=== PATIENT | female | born 1940 | race Caucasian/White ===

== ENCOUNTER 2016-09-12 23:17 | Inpatient (IN) | payer MEDICARE, BC ==
[~2016-09-12] VITALS: Ht 168.9 cm; Wt 129.7 kg
[2016-09-13 00:34] LABS: HEMATOCRIT 41.7 % (36.0-48.0); HEMOGLOBIN 13.6 g/dL (12-16); LYMPHOCYTES 18.2 % (15-50); MCH 27.4 pg (26.0-34.0); MCHC 32.6 g/dL (31.0-37.0); MCV 83.9 fL (80.0-100.0); MEAN PLATELET VOLUME 9.6 fL (7.4-10.4); NEUTROPHILS 74.9 % (40-80); PLATELET COUNT 215 10x3/uL (130-400); RBC 4.97 10x6/uL (4.00-5.40); RDW 14.1 % (11.5-14.5); WBC 7.2 10x3/uL (4.8-10.8)
[2016-09-13 00:45] LABS: ALBUMIN 3.4 g/dL (3.4-5.0); ANION GAP 15.5 mmol/L (8-16); BILIRUBIN - TOTAL 1.23 mg/dL (0.2-1.3); CALCIUM 9.2 mg/dL (8.5-10.1); CARBON DIOXIDE 26.5 mmol/L (21.0-32.0); PROTEIN - SERUM 7.3 g/dL (6.4-8.2)
[2016-09-13 01:16] LABS: APPEARANCE HAZY (CLEAR); COLOR YELLOW (YELLOW); SPECIFIC GRAVITY 1.025 (1.005-1.020)
[2016-09-13 01:17] LABS: BACTERIA MODERATE /hpf (NONE SEEN); BILIRUBIN 3+ (NEGATIVE); EPITHELIAL CELLS 0-5 /hpf (0-5); GLUCOSE 250 mg/dL (NEGATIVE); GRANULAR CAST OCC /lpf (NONE SEEN); KETONE SMALL mg/dL (NEGATIVE); LEUKOCYTE ESTERASE TRACE (NEGATIVE); MUCUS >1+ /lpf (NONE SEEN); NITRITE NEGATIVE (NEGATIVE); PROTEIN 2+ mg/dL (NEGATIVE); RED CELLS - URINE OCC /hpf (0-5); UROBILINOGEN NORMAL (NORMAL)
--- NOTE | 2016-09-13 03:12 | NUR ---
RECIEVED PT TO FLOOR VIA WHEELCHAIR. ALERT AND ORIENTED AND ABLE TO VERBALIZE NEEDS. PT WITH SLIGHT EXPRESSIVE DYSPHAGIA. IV IS PATENT AND SALINE LOC AT THIS TIME. PT IS AMBULATORY WITH ASSISTANCE BUT BED ALARM IS PUT IN PLACE FOR PT SAFETY. PT DENIES ANY PAIN AT THIS TIME. NO NEEDS ARE VERBALIZED AT THIS TIME. PT IS ORIENTED TO ROOM AND USE OF CALL LIGHT. WILL CONTINUE TO MONITOR. SIDE RAILS ARE UP X 2. BED IS IN LOWEST POSITION. BED ALARM IS ON FOR SAFETY. CALL LIGHT IS PLACED IN REACH.
[2016-09-13] MEDS ORDERED: PRINIVIL20 MG PO (03:13)
[2016-09-13] MEDS ORDERED: LANTUS INSULIN10 ML SC (03:14)
[2016-09-13] MEDS ORDERED: TOPROL XL100 MG PO (03:14)
[2016-09-13] MEDS ORDERED: NORVASC10 MG PO (03:14)
[2016-09-13] MEDS ORDERED: OMEPRAZOLE CAP 20M PO (03:16)
[2016-09-13] MEDS ORDERED: ALENDRONATE SOD70 MG PO (03:17)
[2016-09-13] MEDS ORDERED: JANUVIA100 MG PO (03:17)
[2016-09-13] MEDS ORDERED: LODINE400 MG PO (03:18)
[2016-09-13] MEDS ORDERED: GLUCOPHAGE1000 MG PO (03:18)
[2016-09-13] MEDS ORDERED: CALCIUM 600+D T1 TA1 (03:20)
[2016-09-13] MEDS ORDERED: ASPIRIN EC325 M1 PO (03:22)
[2016-09-13] MEDS ORDERED: HYDROCHLOROTH12.5 M1 PO (03:23)
[2016-09-13] MEDS ORDERED: MULTIPLE VITAMI1 TA1 PO (03:23)
[2016-09-13 05:00] VITALS: BP 150/78
[2016-09-13 06:46] VITALS: BP 150/78; BMI 45.4
--- NOTE | 2016-09-13 08:10 | NUR ---
SPOKE WITH DR SAMANO AT THIS TIME AND NEW ORDER FOR ZOFRAN GIVEN FOR PT'S COMPLAINT OF NAUSEA WITHOUT VOMITING. REMAINS NPO.
[2016-09-13 08:11] VITALS: BP 153/99
--- NOTE | 2016-09-13 09:16 | NUR ---
PRN ZOFRAN ADMINSTERED PER ORDER AT THIS TIME FOR PT'S C/O NAUSEA WITHOUT EMESIS. IV TO LEFT CHEST PATENT. ASSESSMENT PERFORMED PER FLOWSHEET. CALL LIGHT IN REACH, WILL CONTINUE WITH PLAN OF CARE.
[2016-09-13 10:52] VITALS: Ht 168.9 cm; Wt 129.7 kg
--- NOTE | 2016-09-13 12:05 | NUR ---
FSBS 168 AT THIS TIME. PT IS NPO, SO INSULIN HELD AT THIS TIME. DENIES PAIN OR NAUSEA. IV TO LEFT BREAST PATENT WITH BRISK BLOOD RETURN PRESENT. PT ABLE TO MAKE NEEDS KNOWN. CALL LIGHT IN REACH, BED ALARM ON AND FAMILY AT BEDSIDE.
--- NOTE | 2016-09-13 12:11 | NUR ---
Patient Name: SUNDAR MCDONALD Admission Status: ER Accout number: [id number] Admission Date: 09-13-2016 : 1940 Admission Diagnosis: Attending: DEEPTHI Current LOS: 1 Anticipated DC Date: 09-18-2016 Planned Disposition: Home Primary Insurance: MEDICARE A & B Discharge Planning Comments: CM MET WITH PATIENT REGARDING D/C NEEDS AND PLANS. PATIENT STATED SHE LIVES ALONE AND HAS NO STEPS OR STAIRS AT HER HOME. PATIENT STATED SHE IS INDEPENDENT AND HAS A WALKER, SHOWER CHAIR, GLUCOMETER AND CPAP AT HOME. PATIENT DOES CHECK HER BLOOD SUGAR REGULARLY. PATIENTS PCP IS DR. GANDARA AND PHARMACY IS [facility] IN [place]. PATIENTS SON WILL BE PICKING HER UP AT DISCHARGE. PATIENT WANTS REHAB OR HH AT DISCHARGE. CM WILL CONTINUE TO FOLLOW PATIENT WITH D/C NEEDS AND PLANS. PCP DR. GANDARA [facility] IN [place]- [phone] DEMETRIA (SON) [phone] ESTRELLITA (STEP MOM) [phone] Cancer Genetics Assistant: Lacey Hutchins Is the patient Alert and Oriented? Yes 0 * How many steps to enter\exit or inside your home? 0 0 * PCP DR. GANDARA 0 * Pharmacy [facility] AT [place] 0 * Preadmission Environment Home Alone 0 * ADLs Independent 0 * Equipment CPAP Glucometer Shower Chair Walker 0 * List name and contact numbers for known caregivers / representatives who currently or will assist patient after discharge: DEMETRIA (SON) [phone] ESTRELLITA (STEP MOM) [phone] 0 * Community resources currently utilized None 0 * Additional services required to return to the preadmission environment? Yes 0 * Can the patient safely return to the preadmission environment? No 0 * Has this patient been hospitalized within the prior 30 days at any hospital? No
[2016-09-13 12:13] VITALS: BP 154/94
--- NOTE | 2016-09-13 12:55 | NUR ---
AMBULATING IN HALLWAY WITH PHYSCAL AND OCCUPATIONAL THERAPY AT THIS TIME.
[2016-09-13 15:59] VITALS: BP 155/86
[2016-09-13 16:45] LABS: CHOL - HDL RATIO 2.9 ratio (2.3-4.1); LDL-HDL RATIO 1.4 ratio (1.5-3.5)
--- NOTE | 2016-09-13 16:45 | NUR ---
TAKEN TO MRI AT THIS TIME. WILL MONITOR PT WHEN SHE RETURNS TO THE FLOOR.
--- NOTE | 2016-09-13 17:35 | NUR ---
SPEECH THERAPY AT BEDSIDE PERFORMING SWALLOW EVALUATION.
[2016-09-13 19:29] VITALS: BP 136/77
--- NOTE | 2016-09-13 19:34 | NUR ---
REPORT CALLED TO OMAR AT THIS TIME. WILL TRANSFER PT TO ROOM 2121 VIA BED.
[2016-09-14] VITALS: BP 130/85
[2016-09-14 04:00] VITALS: BP 141/102
--- NOTE | 2016-09-14 07:45 | NUR ---
INTRODUCED MYSELF TO PT PRIMARY RN FOR TODAYS SHIFT. PT IS ALERT AND ORIENTED SITTING UP IN BED RESTING QUIETLY. RR NONLABORED ON RA. TELEMETRY RUNNING UNCONTROLLED A.FIB. PT HAS A L.BREAST PIV WITH DRSG CDI AND SWAB CAPS IN USE. CURRENTLY INFUSING CARDIZEM AT 10ML/HR. SHIFT ASSESSMENT COMPLETED AND PT DENIES ANY CURRENT PAIN OR NEEDS AT THIS TIME. CL IN REACH. WILL CPOC.
[2016-09-14 08:00] VITALS: BP 148/76
--- NOTE | 2016-09-14 09:00 | NUR ---
PT REC'D MORNING MEDICATIONS AND SWALLOWED WITHOUT ANY DIFFICULTIES. PT STATES SHE TAKES HER HCTZ 25MG ONCE A DAY WHEN ITS CURRENTLY ORDERED 12.5MG BID. WILL ASK ABOUT HAVING IT CHANGED. PT RESTING QUIETLY AND DENIES ANY CURRENT PAIN OR NEEDS AT THIS TIME. CL IN REACH. WILL CPOC.
[2016-09-14] MEDS ORDERED: CALCIUM 600+D T1 TA1 PO (10:36)
--- NOTE | 2016-09-14 11:07 | NUR ---
FSBS 213. PT REC'D 4 UNITS OF SS INSULIN. PT RESTING QUIETLY IN BED AND DENIES ANY CURRENT PAIN OR NEEDS. CL IN REACH. WILL CPOC.
[2016-09-14 12:00] VITALS: BP 132/64
--- NOTE | 2016-09-14 14:07 | NUR ---
REPLACED OLD CARDIZEM DRIP WITH NEW BAG. INFUSING VIA L.BREAST PIV WITH DRSG CDI AND SWAB CAPS IN USE. INFUSING @10ML/HR. PT RESTING QUIETLY AND STATES SHE IS COMFORTABLE IN BED. NO FURTHER NEEDS NOTED AT THIS TIME. CL IN REACH. WILL CPOC.
[2016-09-14 16:00] VITALS: BP 154/87
--- NOTE | 2016-09-14 16:23 | NUR ---
FSBS 204. PT REC'D 4 UNITS PER SS INSULIN. PT IS RESTING QUIETLY WITH FAMILY AT BEDSIDE. REQUESTED AND PROVIDED WITH ICE WATER. NO FURTHER NEEDS AT THIS TIME. CL IN REACH. WILL CPOC.
--- NOTE | 2016-09-14 20:00 | NUR ---
RESTING IN BED. FAMILY X 2 AT BEDSIDE. REVIEWED PLAN OF CARE. ASSESSMENT COMPLETED. IV CARDIZEM INFUSING TO LEFT BREAST AT 10ML/HR. CAF PER TELEMETRY. NONLABORED RESPIRATIONS ON ROOM AIR. CALL LIGHT IN REACH. CPOC.
[2016-09-14 21:18] VITALS: BP 110/64
--- NOTE | 2016-09-14 23:00 | NUR ---
HS MEDS GIVEN. FSBS 224. SLIDING SCALE INSULIN GIVEN. PT WANTING HER ARTHRITIS MEDICATION, BUT IT IS ON ON HOLD PER MD ORDER. PT PLANS TO TALK TO MD ABOUT IT TOMORROW. PT NOW WITH HOME CPAP IN PLACE AND IS RESTING.
[2016-09-15 01:12] VITALS: BP 127/72
[2016-09-15 05:01] VITALS: BP 123/58
[2016-09-15 07:26] VITALS: BP 112/54
--- NOTE | 2016-09-15 11:30 | NUR ---
FSBS 269. PT REC'D 6 UNITS OF SS INSULIN. PT SITTING UP IN BED WAITING ON HER LUNCH TRAY WITH VISITOR AT BEDSIDE. PT DENIES ANY CURRENT PAIN OR NEEDS AT THIS TIME. CL IN REACH. WILL CPOC.
[2016-09-15 12:04] VITALS: BP 128/71
--- NOTE | 2016-09-15 13:12 | NUR ---
Nutritition follow-up: Diet: ADA consistent CHO PO intake ~60% of meals Pt working with speech to improve swallow function labs reviewed Wt: 285# RDN following.
--- NOTE | 2016-09-15 13:20 | NUR ---
STOPPED CARDIZEM DRIP ORDERED. FLUSHED AND SL PTS L.BREAST PIV. DRSG CDI AND SWAB CAPS IN USE. TEACHING DONE ON WHY DRIP WAS STOPPED AND NEW MED ORDERED XARELTO. PT VERBALIZED UNDERSTANDING AND DENIES ANY CURRENT NEEDS OR QUESTIONS. CL IN REACH. WILL CPOC.
[2016-09-15 16:00] VITALS: BP 141/76
--- NOTE | 2016-09-15 16:15 | NUR ---
FSBS 219. PT REC'D 4 UNITS PER SS INSULIN. PT SITTING UP IN BED RESTING QUIETLY AND STATES SHE IS COMFORTABLE. CL IN REACH. WILL CTM.
[2016-09-15 20:25] VITALS: BP 145/74
[2016-09-16 00:41] VITALS: BP 138/70
[2016-09-16 05:48] VITALS: BP 128/77
--- NOTE | 2016-09-16 07:22 | NUR ---
PT SITTING UP IN BED DENIES NEEDS WILL CONT TO MONITOR
[2016-09-16 08:00] VITALS: BP 131/76
[2016-09-16 12:00] VITALS: BP 135/83
[2016-09-16 13:11] LABS: BASOPHILS 0.1 % (0.0-2.0); EOSINOPHILS 0.8 % (0-7); HEMATOCRIT 42.7 % (36.0-48.0); IMMATURE GRANULOCYTES 0.7 % (0-5); LYMPHOCYTES 21.3 % (15-50); MCH 27.5 pg (26.0-34.0); MCHC 32.8 g/dL (31.0-37.0); MCV 83.9 fL (80.0-100.0); MEAN PLATELET VOLUME 10.8 fL (7.4-10.4); MONOCYTES 9.1 % (2-11); PLATELET COUNT 241 10x3/uL (130-400); RBC 5.09 10x6/uL (4.00-5.40); RDW 13.9 % (11.5-14.5); WBC 8.9 10x3/uL (4.8-10.8)
[2016-09-16 14:38] LABS: CALCIUM 8.7 mg/dL (8.5-10.1); CARBON DIOXIDE 32.9 mmol/L (21.0-32.0); CREATININE - SERUM 1.2 mg/dL (0.6-1.3)
[2016-09-16 14:45] LABS: ANION GAP 10.8 mmol/L (8-16)
[2016-09-16 14:47] LABS: POTASSIUM - SERUM 2.7 mmol/L (3.5-5.1)
[2016-09-16 16:27] VITALS: BP 125/52
--- NOTE | 2016-09-16 18:13 | NUR ---
PT SITTING UP IN BED WITH FAMILY AT BEDSIDE. DENIES NEEDS WILL CONT TO MONITOR.
[2016-09-16 20:15] VITALS: BP 149/47
--- NOTE | 2016-09-16 22:17 | NUR ---
PT RESTING IN BED. HOME CPAP IN PLACE. ROUSES EASILY. HS MED GIVEN. FSBS 289, 6 UNITS HUMALOG GIVEN. REVIEWED PLAN OF CARE. PT DENIES PAIN OR DISCOMFORT. SEE ASSESSMENT. CPOC.
[2016-09-17 00:23] VITALS: BP 144/75
[2016-09-17 04:20] VITALS: BP 120/68
[2016-09-17 05:11] LABS: BASOPHILS 0.2 % (0.0-2.0); EOSINOPHILS 1.6 % (0-7); HEMATOCRIT 41.5 % (36.0-48.0); HEMOGLOBIN 13.1 g/dL (12-16); IMMATURE GRANULOCYTES 0.3 % (0-5); LYMPHOCYTES 23.4 % (15-50); MCH 26.8 pg (26.0-34.0); MCHC 31.6 g/dL (31.0-37.0); MEAN PLATELET VOLUME 10.5 fL (7.4-10.4); MONOCYTES 12.9 % (2-11); NEUTROPHILS 61.6 % (40-80); PLATELET COUNT 238 10x3/uL (130-400); RBC 4.88 10x6/uL (4.00-5.40)
[2016-09-17 05:18] LABS: WBC 6.4 10x3/uL (4.8-10.8)
[2016-09-17 06:06] LABS: ANION GAP 13.2 mmol/L (8-16); CALCIUM 8.3 mg/dL (8.5-10.1); MAGNESIUM - SERUM 1.4 mg/dL (1.8-2.4); PHOSPHOROUS 4.5 mg/dL (2.5-4.9)
[2016-09-17 06:08] LABS: CREATININE - SERUM 0.8 mg/dL (0.6-1.3); POTASSIUM - SERUM 3.2 mmol/L (3.5-5.1)
--- NOTE | 2016-09-17 07:30 | NUR ---
RESTING QUIETLY RESP UNLABORED DENIES ANY NEEDS OR DISCOMFORT NAD NOTED
[2016-09-17 08:00] VITALS: BP 148/94
[2016-09-17 12:00] VITALS: BP 109/82
--- NOTE | 2016-09-17 12:09 | NUR ---
FSBS 314 HUMALOG 8 UNITS GIVEN SQ LT ARM
[2016-09-17 16:00] VITALS: BP 122/74
--- NOTE | 2016-09-17 19:44 | NUR ---
RESUMED CARE OF PT, LYING IN BED RESPIRATIONS EVEN AND UNLABORED ON ROOM AIR. 108 UCAF ON TELEMETRY. NO NEEDS VOICED AT THIS TIME. CALL LIGHT IN REACH. WILL CONTINUE TO MONITOR. SEE NURSE ASSESSMENT.
[2016-09-17 20:00] VITALS: BP 138/67
[2016-09-18] VITALS: BP 141/88
[2016-09-18 04:00] VITALS: BP 142/80
[2016-09-18 06:02] LABS: BASOPHILS 0.6 % (0.0-2.0); EOSINOPHILS 2.4 % (0-7); HEMATOCRIT 41.4 % (36.0-48.0); HEMOGLOBIN 13.1 g/dL (12-16); IMMATURE GRANULOCYTES 0.4 % (0-5); LYMPHOCYTES 25.4 % (15-50); MCH 26.8 pg (26.0-34.0); MCHC 31.6 g/dL (31.0-37.0); MCV 84.8 fL (80.0-100.0); MEAN PLATELET VOLUME 9.9 fL (7.4-10.4); MONOCYTES 13.3 % (2-11); NEUTROPHILS 57.9 % (40-80); PLATELET COUNT 239 10x3/uL (130-400); RBC 4.88 10x6/uL (4.00-5.40); RDW 13.9 % (11.5-14.5); WBC 5.4 10x3/uL (4.8-10.8)
[2016-09-18 06:22] LABS: ANION GAP 11.3 mmol/L (8-16); CALCIUM 8.4 mg/dL (8.5-10.1); CARBON DIOXIDE 30.1 mmol/L (21.0-32.0); CREATININE - SERUM 0.8 mg/dL (0.6-1.3); MAGNESIUM - SERUM 1.5 mg/dL (1.8-2.4); POTASSIUM - SERUM 3.4 mmol/L (3.5-5.1)
[2016-09-18 08:25] VITALS: BP 148/81
--- NOTE | 2016-09-18 09:37 | NUR ---
TELEMETRY UCAF HR 111. SITTING UP IN CHAIR WITH CALL LIGHT IN REACH. WILL CONT. PLAN OF CARE.
[2016-09-18 12:53] VITALS: BP 130/68
--- NOTE | 2016-09-18 14:16 | EC ---
PATIENT:SUNDAR MCDONALD DATE OF SERVICE: 09/13/16 SEX: F MEDICAL RECORD: [id number] DATE OF : [birth year] LOCATION:D.M2 D.212 AGE OF PATIENT: 76 ADMISSION DATE: 09/13/16 REFERRING PHYSICIAN: INTERPRETING PHYSICIAN: SAY RASCON MD ECHOCARDIOGRAM REPORT ECHO CHARGES 4 ECHO COMPLETE CLINICAL DIAGNOSIS: LEFT MCA ECHOCARDIOGRAPHIC MEASUREMENTS (adult normal given) AC root (d.<3.7cm) 3.4 LV Septum d (<1.2 cm> 1.3 Valve Excursion 2.0 LV Septum (systole) 1.8 Left Atria (s.<4.0cm> 3.4 LVPW d(<1.2cm) 1.3 RV (d.<2.3cm) 3.3 LVPW (sytole) 1.9 LV diastole(<5.6CM) 3.3 MV E-F(>70mm/sec) LV systole 1.9 LVOT Diameter 1.8 MV exc.(>10mm) Est.ejection fraction (50-75%) Pericardial Effusion N DOPPLER: LVIT A E 106.0 LA RVSP 38.0 LVOT 103 AOP1/2T Asc. Ao 145 RVOT 72.0 RA PA 115 AV Gradient Peak 8.4 AV Mean 4.6 AV Area 1.7 MV Gradient Peak 5.6 MV Mean 2.0 MV Area COMMENTS: Cargo Bracer: Milagros GUARDADOOE Rv Technician:Melania Murillo TAPE# PACS DATE OF SERVICE: 09/13/2016 Echocardiogram FINDINGS: 1. Left ventricular chamber size is within normal limits. Left ventricular systolic function is normal. Overall ejection fraction estimated at 55%. 2. Left atrium, right atrium, and right ventricle chamber sizes are within normal limits. 3. Valvular structures have normal structure and motion. ECHOCARDIOGRAM REPORT [id number] SUNDAR CMDONALD 4. Doppler interrogation only reveals mild tricuspid regurgitation. No other valvular insufficiency or stenosis and pulmonary systolic pressure is normal estimated at 38 mmHg. 5. No evidence of pericardial effusion or left ventricular thrombus. TRANSINT:[id number] Voice Confirmation ID: [id number] DOCUMENT ID: [id number] SAY RASCON MD at 8326 CC: VANE SAMANO MD [id number] DICTATION DATE: 09/13/16 1302 CREDIT REPORTER: 09/13/16 1344 ADM IN [place] [id number] [place] [id number]
--- NOTE | 2016-09-18 16:41 | NUR ---
Patient Name: SUNDAR MCDONALD Encounter No: [id number] : 1940 Primary Insurance: MEDICARE A & B Anticipated DC Date: Planned Disposition: Inpatient Rehab External Planned Provider: [facility] INPATIENT REHAB DCP follow-up note: CM MET WITH PT IN ROOM TO DISCUSS DISCHARGE NEEDS AND PLANNING. CM DISCUSSED AVAILABILITY OF HOME HEALTH, REHAB SERVICES AND MEDICAL EQUIPMENT. PT WOULD LIKE TO BE CONSIDERED FOR INPATIENT REHAB AT [facility]. IMPORTANT MESSAGE FROM MEDICARE PROVIDED AND EXPLAINED. Martin Haney, CASE MANAGMENT
[2016-09-18 16:49] VITALS: BP 131/71
[2016-09-19] VITALS: BP 131/74
--- NOTE | 2016-09-19 00:06 | NUR ---
PT LAYING IN BED PT ASSESSMENT COMPLETED NO DISTRESS OBSERVED RESPEARATIONS EVEN AND UNLABORED NO DISTRESS OBSERVED CALL LIGHT IN REACH SRX2 BED LOW AND LOCKED WILL MONITOR
[2016-09-19 04:00] VITALS: BP 143/82
[2016-09-19 06:20] LABS: BASOPHILS 0.4 % (0.0-2.0); HEMATOCRIT 42.1 % (36.0-48.0); HEMOGLOBIN 11.6 g/dL (12-16); IMMATURE GRANULOCYTES 0.8 % (0-5); LYMPHOCYTES 21.5 % (15-50); MCH 23.6 pg (26.0-34.0); MCHC 27.6 g/dL (31.0-37.0); MCV 85.6 fL (80.0-100.0); MEAN PLATELET VOLUME 11.1 fL (7.4-10.4); MONOCYTES 11.3 % (2-11); RBC 4.92 10x6/uL (4.00-5.40); RDW 13.9 % (11.5-14.5); WBC 5.1 10x3/uL (4.8-10.8)
[2016-09-19 06:24] LABS: ANION GAP 14.3 mmol/L (8-16); CALCIUM 8.4 mg/dL (8.5-10.1); CARBON DIOXIDE 27.4 mmol/L (21.0-32.0); CREATININE - SERUM 0.9 mg/dL (0.6-1.3); PLATELET COUNT 179 10x3/uL (130-400); POTASSIUM - SERUM 3.7 mmol/L (3.5-5.1)
[2016-09-19 08:00] VITALS: BP 137/56
--- NOTE | 2016-09-19 09:23 | NUR ---
TELEMETRY CAF. UP IN CHAIR WITH CALL LIGHT IN REACH. WILL MONITOR NEEDS.
[2016-09-19 12:00] VITALS: BP 129/60
[2016-09-19] MEDS ORDERED: XARELTO20 MG PO (12:02)
[2016-09-19] MEDS ORDERED: TOPROL XL50 MG PO (12:03)
[2016-09-19] MEDS ORDERED: BETAPACE 120 M120 MG PO (12:03)
--- NOTE | 2016-09-19 14:38 | NUR ---
Patient Name: SUNDAR MCDONALD Encounter No: [id number] : 1940 Primary Insurance: MEDICARE A & B Anticipated DC Date: 09-19-2016 Planned Disposition: Home DCP follow-up note: CM RECEIVED DISCHARGE ORDERS, MET WITH PT IN ROOM TO DISCUSS DISCHARGE PLANNING AND NEEDS. PHYSICAL AND SPEECH THERAPY HAVE SIGNED OFF ON PATIENT, PT HAS NO WOUND CARE NEEDS. PT DOES NOT QUALIFY FOR INPATIENT OR JAIL REHAB NOR HAVE A HOME HEALTH SKILLED NEED. PT DENIES NEED OF ANY MEDICL EQUIPMENT AND DISCHARGE NEEDS AT THIS TIME, REPORTS HER FAMILY WILL PICK HER UP AND WILL BE ASSISTING HER IF NEEDED. PT HAS IMPORTANT MESSAGE FROM MEDICARE FROM YESTERDAY. PT DENIES DISCHARGE NEEDS, FAMILY TO [employer] FOR TRANSPORT HOME. Martin Haney, CASE MANAGEMENT
--- NOTE | 2016-09-19 15:54 | NUR ---
IV AND TELEMETRY DCD. DC PLANS GIVEN. UNDERSTANDING VOICED. ESCORTED TO CAR BY W/C.
[2016-10-19] MEDS ORDERED: ACETAMINOPHEN500 M1 (09:09)
[2016-10-19] MEDS ORDERED: XARELTO20 MG PO (09:11)
== END 2016-09-19 15:55 | disposition home or self-care (01) | DRG 65 ==
LOC: D.ER 23:17 → D.M2 09-13 01:32 → D.MS 09-13 01:32 → D.M2 09-13 19:35
PROVIDERS: Emergency Medicine; Nurse Practitioner Family; ADMIT Family Medicine
DX: I63.512 Cerebral infarction due to unspecified occlusion or stenosis of left middle cerebral artery (principal); G81.91 Hemiplegia, unspecified affecting right dominant side; I10 Essential (primary) hypertension; E11.9 Type 2 diabetes mellitus without complications; I48.91 Unspecified atrial fibrillation; R40.2143 Coma scale, eyes open, spontaneous, at hospital admission; R40.2363 Coma scale, best motor response, obeys commands, at hospital admission; R40.2253 Coma scale, best verbal response, oriented, at hospital admission

== ENCOUNTER → 2016-10-19 08:14 | Outpatient (CLI) | payer MEDICARE, BC ==
[~2016-10-19] VITALS: Ht 168.9 cm; Wt 129.5 kg
--- NOTE | ~2016-10-19 | HEMODYNAMI ---
PATIENT:SUNDAR MCDONALD MEDICAL RECORD: [id number] : [birth year] LOCATION:[facility] ADMISSION DATE: 10/19/16 Generatedon:10/19/201610:20 Patient name: SUNDAR MCDONALD Patient #: [id number] SSN: DO B: 1940 Date of study: 10/19/2016 Page: Of Hemodynamic Procedure Report Patient Data Patient Demographics Procedure consent was obtained First Name: SUNDAR Gender: Female Last Name: TAMARA : 1940 Middle Initial: L Age: 76 year(s) Patient #: [id number] Race: Additional ID: [id number] Contact details [address]: [address] [place] [address] State: [place] City: [place] Zip code: [address] Past Medical History Allergies Allergen Reaction Date Comments Reported Augmentin 10/19/2016 Admission Admission Data Admission Date: 10/19/2016 Admission Time: 8:14 Height (in.): 66.5 BSA: 2.36 (m2) Height (cm.): 168.91 BMI: 46.42 (kg/m2) Weight (lbs.): 292 Weight (kg.): 132.45 Lab Results Lab Result Date: 10/19/2016 Lab Result Time: 0:00 CBC Name Units Result Min Max Hemoglobin g/dl 13.4 -*(----)-- 13.5 17.5 Coagulation Name Units Result Min Max INR units 1.36 --(----)-* 0.85 1.17 PT sec 16.7 --(----)-* 11.6 15 Procedure Procedure Types Cath Procedure Diagnostic Procedure Cardioversion Procedure Description Procedure Date Procedure Date: 10/19/2016 Procedure Start Time: 10:12 Procedure End Time: 10:14 Procedure Staff Name Function Jayy Murillo MD Performing Physician Jorgito Gallagher RN Severity Of Illness Coordinator Bruno Claire RT Monitor Karolina Veliz RN Nurse Tucker Baldwin MD Additional personnel Procedure Data Cath Procedure Fluoroscopy Diagnostic fluoroscopy Total fluoroscopy Time: 0 time: 0 min min Diagnostic fluoroscopy Total fluoroscopy dose: 0 dose: 0 mGy mGy Procedure Complications No complications Procedure Medications Medication Administration Route Dosage Oxygen NC 2 l/min Refer to Anesthesia Notes for Sedation Medications Hemodynamics Rest BSA: 2.36 (m2) HGB: 13.4 (g/dl) O2 Consumption: Estimated: 229.91 (ml/min) O2 Co nsumption indexed: Estimated:97.42 (ml/min/m) Heart Rate: 88 (bpm) Snapshots Pre Cath Intra NCS Post Cath Vital Signs Time Heart Resp SPO2 etCO2 TH9ctrq Respiration NIBP (mmHg) Rhythm Pain Sedation Rate (ipm) (%) (mmHg) (mmHg) (CO2) (ipm) Status Level (bpm) 10:00:50 85 18 96 39.4 4.5 17 114/61(90) A-Fib 0 (1 1) 10(A) , No pain 10:06:13 83 16 97 41 6 16 142/84(107) A-Fib 0 (1 1) 10(A) , No pain 10:11:12 68 18 95 44 10.6 19 Measuring NSR 0 (1 1) 6(A) , No pain 10:12:34 76 16 97 41.8 9.8 19 Time NSR 0 (1 1) 6(A) Exceeded , No pain 10:14:41 77 21 98 39.3 4.5 21 134/70(98) NSR 0 (1 1) 10(A) , No pain Medications Time Medication Route Dose Verified Delivered Reason Notes Effectivene ss by by 9:59:28 Oxygen NC 2 Jorgito Hope Per l/min Elliott Murillo MD physician RN 9:59:34 Refer to Jorgito Hope Per Anesthesia Elliott Murillo MD physician Notes for RN Sedation Medications Procedure Log Time Note 9:00:17 Jorgito Gallagher RN sent for patient. Start room use. 9:35:13 ACC Patient presents with Non-STEMI CCS Anginal Class 2--Slight limitation of ordinary activity. 9:35:15 Diagnostic Cath status Elective 9:35:25 Time tracking: Regular hours 9:35:29 Plan of Care:Hemodynamics will remain stable., Cardiac rhythm will remain stable., Comfort level will be maintained., Respiratory function will remain adequate., Patient/ family verbilizes understanding of procedure., Procedure tolerated without complication., Recovers from procedure without complications.. 9:37:01 Quick Combo opened to sterile field. 9:37:02 Patient arrived from Pre/Post Procedure Room to CCL 1. Patient remains on bed/stretcher for procedure. 9:38:26 Patient allergic to Augmentin 9:38:39 Patient Height : 66.5 inches 9:38:44 Patient Weight : 292 lbs 9:44:15 Zero performed for pressure channel P1 9:44:22 Zero performed for pressure channel P1 9:45:25 ------Cardioversion------ 9:46:04 DR ESCOBAR present and monitoring patient for TIVA. 9:53:39 Patient received from Pre/Post Procedure Room to CCL 1 Alert and oriented. Tansferred to table in Supine position. 9:53:40 Warm blankets applied, and sherwin hugger turned on for patient comfort. 9:53:41 Correct patient and procedure confirmed by team. 9:53:43 Signed procedure consent form obtained from patient. 9:53:44 ECG and BP/O2 sat monitors applied to patient. 9:59:16 Vital chart was started 9:59:28 Oxygen 2 l/min NC was given by Jayy Murillo MD; Per physician; 9:59:34 Refer to Anesthesia Notes for Sedation Medications was given by Jayy Murillo MD; Per physician; 10:03:25 Baseline sample Acquired. 10:03:30 Rhythm: atrial flutter 10:03:31 Full Disclosure recording started 10:03:44 H&P Date Dictated: 10/10/2016 Within 30 days and on chart., H&P Addendum completed by physician on day of procedure. (MUST COMPLETE FOR ALL OUTPATIENTS). 10:03:45 Pre-procedure instructions explained to patient. 10:03:46 Pre-op teaching completed and patient verbalized understanding. 10:03:47 Family in waiting room. 10:03:48 Patient NPO since Midnight. 10:03:50 Is the patient allergic to Iodine/contrast media? No. 10:03:57 Is patient on blood thinner?Yes 10:04:00 ACC The patient was administered the following blood thiners within the last 24 hours: Xarelto 10:04:29 Patient diabetic? Yes. 10:04:31 If diabetic: On Metformin? Yes 10:04:33 If on Metformin: Last Dose? 10/19/2016 10:04:34 ----Pre-sedation anethsthesia assessment.---- 10:04:37 Previous problem with sedation/anesthesia? No ? 10:04:38 Snore? Yes 10:04:39 Sleep apnea? Yes 10:04:40 Deviated septum? No 10:04:41 Opens mouth fully? Yes 10:04:42 Sticks out tongue? Yes 10:04:45 Airway obstruction? No ? 10:04:47 Dentures? No ? 10:04:54 IV patent on arrival in left antecubital with 0.9% NaCl at 10ml/hr. 10:07:18 Alarms reviewed by R. N. 10:07:18 Sharps counted by scrub and verified by R.N. 10:07:19 --------ALL STOP TIME OUT------ 10:07:19 Final Timeout: patient, procedure, and site verified with staff and physician. All members of the team are in agreement. 10:07:25 Mid Chest site verified by team. 10:07:36 Physical assessment completed. ASA score P 2 - A patient with mild systemic disease as per Jayy Murillo MD. 10:07:42 Sedation plan: TIVA Propofol 10:08:33 Quick combo pads placed on patients chest and back. 10:09:08 Lab Result : Hemoglobin 13.4 g/dl 10:09:08 Lab Result : PT 16.7 sec 10:09:08 Lab Result : INR 1.36 units 10:09:12 Lab results completed and on chart. 10:09:21 Defibrillator synced and charged to 200 Joules. 10:09:23 Shock delivered. 10:11:08 Defibrillator synced and charged to 300 Joules. 10:11:09 Shock delivered. 10:11:42 Patient cardioverted to sinus rhythm . 10:11:55 Procedure ended.(Physican Out) 10:11:58 Fluoroscopy time 00.00 minutes. 10:11:59 Flurop Dose total: 0 10:11:59 Fluoroscopy dose: 0 mGy 10:12:01 Sharps counted by scrub and verified by R.N. 10:12:07 Post procedure rhythm: sinus rhythm 10:12:08 Post procedure instruction explained to patient.Patient verbalizes understanding. 10:12:59 Procedure started. 10:13:49 Procedure and supply charges have been captured, reviewed, submitted and are correct. 10:13:52 Procedure Complication : No complications 10:13:58 Vital chart was stopped 10:13:58 See physician's report for complete and final results. 10:14:00 Report given to Pre/Post Procedure Room. 10:14:03 Patient transfered to Pre/Post Procedure Room with Stretcher. 10:14:06 Procedure ended. 10:14:06 Full Disclosure recording stopped 10:14:08 End room use (Document Last) Device Usage Item Manufacture Quantity Catalog Hospital Part Current Minimal Lot# / Name Number Charge Number Stock Stock Kyle al# Code Knotice 1 [id number] Combo Signature Audit [place] Stage Time Signature Unsigned Intra-Procedure 10/19/2016 Bruno Claire 10:20:37 AM RT(R) Signatures Monitor : Bruno Claire RT Signature : Date : Time : [address] [address]
[~2016-10-19 08:14] MED LIST: ACETAMINOPHEN500 M1; ALENDRONATE SOD70 MG PO; ASPIRIN EC325 M1 PO; BETAPACE 120 M120 MG PO; CALCIUM 600+D T1 TA1; CALCIUM 600+D T1 TA1 PO; GLUCOPHAGE1000 MG PO; HYDROCHLOROTH12.5 M1 PO; JANUVIA100 MG PO; LANTUS INSULIN10 ML SC; LODINE400 MG PO; MULTIPLE VITAMI1 TA1 PO; NORVASC10 MG PO; OMEPRAZOLE CAP 20M PO; PRINIVIL20 MG PO; TOPROL XL100 MG PO; TOPROL XL50 MG PO; XARELTO20 MG PO
[2016-10-19 09:20] VITALS: BP 153/78; Ht 168.9 cm; Wt 129.5 kg
[2016-10-19 09:27] LABS: BASOPHILS 0.2 % (0.0-2.0); EOSINOPHILS 1.1 % (0-7); HEMATOCRIT 42.7 % (36.0-48.0); HEMOGLOBIN 13.4 g/dL (12-16); IMMATURE GRANULOCYTES 0.7 % (0-5); LYMPHOCYTES 25.4 % (15-50); MCH 26.9 pg (26.0-34.0); MCHC 31.4 g/dL (31.0-37.0); MCV 85.7 fL (80.0-100.0); MEAN PLATELET VOLUME 10.6 fL (7.4-10.4); MONOCYTES 10.7 % (2-11); NEUTROPHILS 61.9 % (40-80); RBC 4.98 10x6/uL (4.00-5.40); RDW 14.9 % (11.5-14.5); WBC 5.6 10x3/uL (4.8-10.8)
[2016-10-19 09:31] LABS: PLATELET COUNT 224 10x3/uL (130-400)
[2016-10-19 09:41] LABS: INR 1.36 (0.85-1.17); PROTIME 16.7 SECONDS (11.6-15.0)
[2016-10-19 10:03] LABS: ANION GAP 12.9 mmol/L (8-16); CALCIUM 8.7 mg/dL (8.5-10.1); CARBON DIOXIDE 27.8 mmol/L (21.0-32.0); CREATININE - SERUM 0.9 mg/dL (0.6-1.3); POTASSIUM - SERUM 3.7 mmol/L (3.5-5.1)
--- NOTE | 2016-10-19 10:46 | NUR ---
1030 RECEIVED PT FROM BILLET SHEARER, PT IS ALERT, DENIES ANY C/O. NSR, RATE OF 80, VSS, ON MONITOR. IV PATENT. PO FLUIDS SERVED. 1045 PT'S FAMILY AT BEDSIDE. PT IS LAKESHA FLUIDS WITH NO C/O. VSS.
--- NOTE | 2016-10-19 11:06 | NUR ---
1100 PT LAKESHA SANDWICH AND PO FLUIDS WITH NO C/O. VSS, ON MONITOR WITH NSR, RATE 74. FAMILY AT BEDSIDE, CALL LIGHT IN REACH.
--- NOTE | 2016-10-19 11:47 | NUR ---
1145 IV DC'D WITH CATH INTACT, PT IS DRESSING FOR DC TO HOME. PT HAS LAKESHA PO FLUIDS AND FOODS WITH NO C/O. FAMILY AT BEDSIDE.
--- NOTE | 2016-10-19 12:05 | NUR ---
1200 PT HAS VOIDED QS. REVIEWED DC INSTRUCTIONS AND PT VERBALIZES UNDERSTANDING. 1205 PT ASSSISTED TO PRIVATE AUTO VIA WC BY NURSE WITH SON DRIVING HER HOME.
--- NOTE | 2016-11-07 08:17 | OP ---
PATIENT NAME: SUNDAR MCDONALD MEDICAL RECORD: [id number] :40 LOCATION:D.CAT ADMISSION DATE: SURGEON: AMANDA SEGUNDO M.D. DATE OF OPERATION: 10/19/2016 PROCEDURES PERFORMED: Cardioversion. INDICATION: A 76-year-old presents with persistent atrial fibrillation. DESCRIPTION: The patient was brought to the feed mill lab technician. It was confirmed, she was in atrial fibrillation. She has been anticoagulated. Conscious sedation was performed by anesthesia department in the form of propofol. Once the patient actually sedated, she received 1 discharge of 200 joules. This resulted in holiness of sinus rhythm for a few seconds. She then went back into atrial fibrillation. At this point, she received additional discharge of 300 joules. This resulted in holiness of sinus rhythm. The patient tolerated the procedure well without any apparent complication. IMPRESSION: Successful cardioversion with holiness of sinus rhythm. TRANSINT:[id number] Voice Confirmation ID: [id number] DOCUMENT ID: [id number] AMANDA SEGUNDO M.D. at 0817 CC: [id number] DICTATION DATE: 10/19/16 1014 RN DIABETES EDUCATOR: 10/19/16 1747 [facility] CLI 10/19/16 [place] [id number] [place] [address]
== END | disposition home or self-care (01) ==
LOC: D.CATH 08:14
PROVIDERS: Internal Medicine Cardiovascular Disease
DX: I48.1 Persistent atrial fibrillation (principal)

== ENCOUNTER 2018-06-10 11:09 | Outpatient (CLI) | payer MEDICARE, BC ==
[~2018-06-10] VITALS: Ht 168.9 cm; Wt 136.4 kg
--- NOTE | ~2018-06-10 | HEMODYNAMI ---
PATIENT:SUNDAR MCDONALD MEDICAL RECORD: [id number] : 40 LOCATION:[facility] ADMISSION DATE: 06/10/18 Generatedon:06/10/201813:51 Patient name: SUNDAR MCDONALD Patient #: [id number] SSN: DO B: 1940 Date of study: 06/10/2018 Page: Of Hemodynamic Procedure Report Patient Data Patient Demographics Procedure consent was obtained First Name: SUNDAR Gender: Female Last Name: TAMARA : 1940 Middle Initial: L Age: 78 year(s) Patient #: [id number] Race: Additional ID: [id number] Contact details [address]: [address] [place] [address] State: [place] City: [place] Zip code: [address] Past Medical History Allergies Allergen Reaction Date Comments Reported Augmentin 10/19/2016 Other allergy 06/10/2018 Augmentin Admission Admission Data Admission Date: 06/10/2018 Admission Time: 11:09 Admit Source: Other Lab Results Lab Result Date: 06/10/2018 Lab Result Time: 12:25 Biochemistry Name Units Result Min Max BUN mg/dl 16 --(---*)-- 7 18 Creatinine mg/dl 0.7 --(*---)-- 0.6 1.3 CBC Name Units Result Min Max Hematocrit % 37.6 *-(----)-- 42 54 Hemoglobin g/dl 11.9 *-(----)-- 13.5 17.5 Procedure Procedure Types Cath Procedure Diagnostic Procedure Cardioversion External Procedure Description Procedure Date Procedure Date: 06/10/2018 Procedure Start Time: 13:37 Procedure End Time: 13:48 Procedure Staff Name Function Jayy Murillo MD Performing Physician Kenneth Cherry RT Monitor Lonnie Donato RN Nurse Mason Richter MD Additional personnel Procedure Data Cath Procedure Fluoroscopy Diagnostic fluoroscopy Total fluoroscopy Time: 0 time: 0 min min Diagnostic fluoroscopy Total fluoroscopy dose: 0 dose: 0 mGy mGy Contrast Material Contrast Material Type Amount (ml) Isovue 300 0 Estimated blood loss: 0 ml Procedure Complications No complications Hemodynamics Rest Heart Rate: 76 (bpm) Snapshots Pre Cath Intra NCS Post Cath Vital Signs Time Heart Resp SPO2 etCO2 NIBP (mmHg) Rhythm Pain Sedation Rate (ipm) (%) (mmHg) Status Level (bpm) 13:25:53 73 19 95 0 162/91(123) A-Fib 0 (11) 10(A) , No pain 13:31:03 77 19 95 0 159/100(121) A-Fib 0 (11) 10(A) , No pain 13:36:18 76 19 94 0 153/82(130) A-Fib 0 (11) 10(A) , No pain 13:44:11 82 17 93 41.5 151/78(114) A-Fib 0 (11) 9(A) , No pain 13:49:23 71 20 94 36.2 144/71(108) A-Fib 0 (11) 10(A) , No pain Procedure Log Time Note 13:00:27 Lonnie Donato RN sent for patient. Start room use. 13:06:03 Informed consent obtained and on chart 13:06:07 Admit Source: Other 13:06:25 Diagnostic Cath status Elective 13:06:32 Time tracking: Regular hours (M-F 7:00 - 5:00) 13:06:34 Plan of Care:Hemodynamics will remain stable., Cardiac rhythm will remain stable., Comfort level will be maintained., Respiratory function will remain adequate., Patient/ family verbilizes understanding of procedure., Procedure tolerated without complication., Recovers from procedure without complications.. 13:07:37 H&P Date Dictated: 05/29/2018 Within 30 days and on chart., H&P Addendum completed by physician on day of procedure. (MUST COMPLETE FOR ALL OUTPATIENTS). 13:15:04 Patient received from Pre/Post Procedure Room to CCL 3 Alert and oriented. Tansferred to table in Supine position. 13:15:05 Warm blankets applied, and sherwin hugger turned on for patient comfort. 13:15:06 Correct patient and procedure confirmed by team. 13:15:06 ECG and BP/O2 sat monitors applied to patient. 13:15:07 Pre-procedure instructions explained to patient. 13:15:08 Pre-op teaching completed and patient verbalized understanding. 13:15:08 Family in waiting room. 13:15:10 Patient NPO since Midnight. 13:15:22 Patient allergic to Other allergyAugmentin 13:20:25 Mason Richter MD present and monitoring patient for TIVA. 13:22:03 Patient diabetic? Yes. 13:22:04 If diabetic: On Metformin? Yes 13:22:05 If on Metformin: Last Dose? 06/10/2018 13:22:07 Is patient on blood thinner?Yes 13:22:09 ACC The patient was administered the following blood thiners within the last 24 hours: Xarelto 13:22:12 Previous problem with sedation/anesthesia? No ? 13:22:13 Snore? Yes 13:22:14 Sleep apnea? Yes 13:22:15 Deviated septum? No 13:22:15 Opens mouth fully? Yes 13:22:24 Sticks out tongue? Yes 13:22:25 Airway obstruction? No ? 13:22:28 Dentures? No ? 13:22:35 Patient pain scale 0/10 ?. 13:22:48 IV patent on arrival in left forearm with 0.9% NaCl at [facility]. 13:23:31 Vital chart was started 13:25:54 Lab Result : BUN 16 mg/dl 13:25:54 Lab Result : Creatinine 0.7 mg/dl 13:25:54 Lab Result : Hemoglobin 11.9 g/dl 13:25:54 Lab Result : Hematocrit 37.6 % 13:25:56 Lab results completed and on chart. 13:26:03 Quick Combo opened to sterile field. 13:26:57 Quick combo pads placed on patients chest and back. 13:27:01 Baseline sample Acquired. 13:27:31 Rhythm: atrial fibrillation 13:27:33 Full Disclosure recording started 13:27:36 Physician arrived 13:27:36 --------ALL STOP TIME OUT------ 13:27:36 Final Timeout: patient, procedure, and site verified with staff and physician. All members of the team are in agreement. 13:27:45 Physical assessment completed. ASA score P 3 - A patient with severe systemic disease as per Jayy Murillo MD. 13:27:48 Sedation plan: TIVA Medication:Propofol 13:37:51 Procedure started. 13:38:37 Defibrillator synced and charged to 200 Joules. 13:38:38 Shock delivered. 13:39:07 Unsuccessful cardioversion. 13:39:36 Defibrillator synced and charged to 300 Joules. 13:39:45 Shock delivered. 13:40:27 Defibrillator synced and charged to 360 Joules. 13:41:01 Shock delivered. 13:41:58 Unsuccessful cardioversion. 13:42:51 Procedure ended.(Physican Out) 13:43:23 Fluoroscopy time 00.00 minutes. 13:43:24 Fluoroscopy dose: 0 mGy 13:43:24 Flurop Dose total: 0 13:43:26 Contrast amount:Isovue 300 0ml. 13:43:31 Post Procedure Pulses reassessed and unchanged 13:43:35 Post-procedure physical assessment completed. ASA score P 3 - A patient with severe systemic disease as per Jayy Murillo MD. 13:43:41 Post procedure rhythm: atrial fibrillation 13:43:44 Estimated blood loss: 0 ml 13:43:45 Post procedure instruction explained to patient.Patient verbalizes understanding. 13:43:46 Patient needs reinforcement of post procedure teaching. 13:44:10 Procedure and supply charges have been captured, reviewed, submitted and are correct. 13:44:12 Procedure Complication : No complications 13:48:17 Vital chart was stopped 13:48:17 See physician's report for complete and final results. 13:48:19 Report given to Pre/Post Procedure Room. 13:48:21 Patient transfered to Pre/Post Procedure Room with Stretcher. 13:48:23 Procedure ended. 13:48:23 Full Disclosure recording stopped 13:48:29 End room use (Document Last) Device Usage Item Manufacture Quantity Catalog Hospital Part Current Minimal Lot# / Name Number Charge Number Stock Panfilo tang# Code [employer] 1 [id number] Combo Signature Audit Luther Stage Time Signature Unsigned Intra-Procedure 06/10/2018 Kenneth Cherry 1:51:23 PM RT(R) Signatures Monitor : Kenneth Cherry RT Signature : Date : Time : [facility] [address] [place] [address]
[2018-06-10] MEDS ORDERED: HCTZ25 MG PO (11:30)
[2018-06-10] MEDS ORDERED: QUESTRAN LIG1 PACKET PO (11:30)
[2018-06-10] MEDS ORDERED: BETAPACE160 MG PO (11:33)
[2018-06-10] MEDS ORDERED: PIOGLITAZONE HC30 MG PO (11:33)
[2018-06-10 11:59] VITALS: BP 127/67; Ht 168.9 cm; Wt 136.4 kg
[2018-06-10 12:31] LABS: BASOPHILS 0.3 % (0-2); EOSINOPHILS 1.7 % (0-7); HEMATOCRIT 37.6 % (36.0-48.0); HEMOGLOBIN 11.9 g/dL (12-16); IMMATURE GRANULOCYTES 0.5 % (0-5); LYMPHOCYTES 23.2 % (15-50); MCHC 31.6 g/dL (31.0-37.0); MCV 85.5 fL (80.0-100.0); MONOCYTES 10.3 % (2-11); PLATELET COUNT 243 10x3/uL (130-400); RDW 15.1 % (11.5-14.5); WBC 5.8 10x3/uL (4.8-10.8)
[2018-06-10 12:39] LABS: INR 1.33 (0.85-1.17); PROTIME 16.1 SECONDS (11.6-15.0)
[2018-06-10 12:45] LABS: CALC OSMOLALITY 283 mosm/kg (275-300); CALCIUM 8.8 mg/dL (8.5-10.1); CARBON DIOXIDE 30.6 mmol/L (21.0-32.0); CHLORIDE - SERUM 103 mmol/L (98-107); CREATININE - SERUM 0.7 mg/dL (0.6-1.3); GLUCOSE 134 mg/dL (74-106); POTASSIUM - SERUM 4.4 mmol/L (3.5-5.1); SODIUM 141 mmol/L (136-145); UREA NITROGEN 16 mg/dL (7-18); eGFR NON AFRICAN AMERICAN 86 mL/min (90-120)
== END 2018-06-10 15:20 | disposition home or self-care (01) ==
LOC: D.CATH 11:09
PROVIDERS: Internal Medicine Cardiovascular Disease
DX: I48.91 Unspecified atrial fibrillation (principal); Z01.812 Encounter for preprocedural laboratory examination

== ENCOUNTER 2018-07-29 23:18 | Observation (INO) | payer MEDICARE, BC ==
[~2018-07-29] VITALS: Ht 168.9 cm; Wt 140.6 kg
--- NOTE | ~2018-07-29 | MORECARE ---
CASE MANAGEMENT DISCHARGE SUMMARY PATIENT: SUNDAR MCDONALD UNIT: [id number] ADM DATE: 07/30/18 AGE: 78 : 40 SEX: F ROOM/BED: D.5543 AUTHOR: KEVIN TREJO PHYSICIAN: REFERRING PHYSICIAN: GINA PAINTING MD DATE OF SERVICE: 07/31/18 Discharge Plan Patient Name: SUNDAR MCDONALD Facility: [facility]:[place] : 1940 Planned Disposition: Home Anticipated Discharge Date: 07/31/18 Discharge Date: 07/31/2018 Expected LOS: 1 Initial Reviewer: [email or web address] Initial Review Date: 07/31/2018 Generated: 07/31/18 6:16 pm Coverage Notice Reviewer: [email or web address] Dhaval Carrera Notice Issued Date-Time: 07/30/2018 11:32 Notice Type: Medicare Outpatient Observation Notice Notice Delivered To: Patient Relationship to Patient: Self Survival Equipment Repairer Name: Delivery Method: HAND - Hand Delivered Manuela Days: Prior Verbal Notification: Recipient Understood Notice: Yes Recipient Signature: Yes Med Rec Note Co-signed by Attending: Coverage Notice Comment: Patient Name: SUNDAR MCDONALD Page 91093 at 1716 All edits/amendments must be made on the electronic document DICTATION DATE: 07/31/181714 CHASSIS INSPECTOR: CRISTOPHER 07/31/181714 RPT#: [id number] DC DATE:07/31/18 STATUS: DIS IN [place] [id number] [place] [address] END OF REPORT
[~2018-07-29 23:18] MED LIST changes: +BETAPACE160 MG PO; +HCTZ25 MG PO; +PIOGLITAZONE HC30 MG PO; +QUESTRAN LIG1 PACKET PO
[2018-07-29 23:40] LABS: HEMATOCRIT 35.7 % (36.0-48.0); HEMOGLOBIN 11.4 g/dL (12-16); LYMPHOCYTES 15.2 % (15-50); MCH 26.8 pg (26.0-34.0); MCHC 31.9 g/dL (31.0-37.0); MCV 83.8 fL (80.0-100.0); MEAN PLATELET VOLUME 9.6 fL (7.4-10.4); NEUTROPHILS 75.7 % (40-80); PLATELET COUNT 236 10x3/uL (130-400); RBC 4.26 10x6/uL (4.00-5.40); RDW 15.3 % (11.5-14.5); WBC 6.5 10x3/uL (4.8-10.8)
[2018-07-29 23:55] LABS: ALBUMIN 3.1 g/dL (3.4-5.0); ALKALINE PHOSPHATASE 57 U/L (46-116); ALT (SGPT) 21 U/L (10-68); BILIRUBIN - TOTAL 1.17 mg/dL (0.2-1.3); CALC OSMOLALITY 288 mosm/kg (275-300); CALCIUM 8.1 mg/dL (8.5-10.1); CARBON DIOXIDE 29.1 mmol/L (21.0-32.0); CHLORIDE - SERUM 102 mmol/L (98-107); CREATININE - SERUM 0.7 mg/dL (0.6-1.3); POTASSIUM - SERUM 3.9 mmol/L (3.5-5.1); PROTEIN - SERUM 7.1 g/dL (6.4-8.2); SODIUM 140 mmol/L (136-145); UREA NITROGEN 20 mg/dL (7-18); eGFR NON AFRICAN AMERICAN 86 mL/min (90-120)
[2018-07-29 23:56] LABS: GLUCOSE 217 mg/dL (74-106)
[2018-07-30] VITALS (8 sets, daily range): BP systolic 102–136; BP diastolic 56–80; BMI 49.4
[2018-07-30 00:04] LABS: MAGNESIUM - SERUM 1.4 mg/dL (1.8-2.4); PRO BNP 712 pg/mL (0-450); TROPONIN-I < 0.017 ng/mL (0.000-0.060)
[2018-07-30] MEDS ORDERED: VITAMIN B-121000 MCG PO (02:20)
[2018-07-30] MEDS ORDERED: VITAMIN D3400 UNI1 PO (02:21)
[2018-07-31] VITALS (8 sets, daily range): BP systolic 112–138; BP diastolic 52–78; Ht 168.9 cm; Wt 140.6 kg
[2018-07-31 05:49] LABS: BASOPHILS 0.2 % (0-2); EOSINOPHILS 2.1 % (0-7); HEMATOCRIT 35.6 % (36.0-48.0); IMMATURE GRANULOCYTES 0.4 % (0-5); LYMPHOCYTES 23.3 % (15-50); MCH 26.2 pg (26.0-34.0); MCHC 30.9 g/dL (31.0-37.0); MCV 84.8 fL (80.0-100.0); MEAN PLATELET VOLUME 10.1 fL (7.4-10.4); MONOCYTES 9.7 % (2-11); NEUTROPHILS 64.3 % (40-80); PLATELET COUNT 240 10x3/uL (130-400); RDW 15.5 % (11.5-14.5); WBC 5.7 10x3/uL (4.8-10.8)
[2018-07-31 06:27] LABS: ANION GAP 10.4 mmol/L (8-16); BILIRUBIN - TOTAL 1.65 mg/dL (0.2-1.3); CARBON DIOXIDE 32.3 mmol/L (21.0-32.0); CREATININE - SERUM 0.8 mg/dL (0.6-1.3); MAGNESIUM - SERUM 1.5 mg/dL (1.8-2.4); POTASSIUM - SERUM 3.7 mmol/L (3.5-5.1); PROTEIN - SERUM 6.9 g/dL (6.4-8.2)
== END 2018-07-31 17:13 | disposition home or self-care (01) ==
LOC: D.ER 23:18 → D.M2 07-30 01:27 → OBSVTIME 07-30 01:27 → D.M2 07-30 01:27
PROVIDERS: Family Medicine; Family Medicine Adult Medicine
DX: R55 Syncope and collapse (principal); E11.65 Type 2 diabetes mellitus with hyperglycemia; I48.0 Paroxysmal atrial fibrillation; I10 Essential (primary) hypertension; Z86.73 Personal history of transient ischemic attack (TIA), and cerebral infarction without residual deficits

== ENCOUNTER 2018-11-01 17:02 | Inpatient (IN) | payer MEDICARE, BC ==
[~2018-11-01] VITALS: Ht 168.9 cm; Wt 140.6 kg
[~2018-11-01 17:02] MED LIST changes: -ACETAMINOPHEN500 M1; +ACETAMINOPHEN500 M1 PO; +VITAMIN B-121000 MCG PO; +VITAMIN D3400 UNI1 PO
[2018-11-01] MEDS ORDERED: RYTHMOL 225 MG225 MG PO (17:26)
[2018-11-01] MEDS ORDERED: PIOGLITAZONE15 MG PO (17:28)
[2018-11-01 18:27] VITALS: BMI 46.2
[2018-11-01 18:29] LABS: BASOPHILS 0 % (0-2); EOSINOPHILS 0.1 % (0-7); HEMOGLOBIN 10.1 g/dL (12-16); IMMATURE GRANULOCYTES 0.3 % (0-5); LYMPHOCYTES 12.8 % (15-50); MCH 24.6 pg (26.0-34.0); MCHC 30.6 g/dL (31.0-37.0); MCV 80.5 fL (80.0-100.0); MEAN PLATELET VOLUME 10.3 fL (7.4-10.4); MONOCYTES 14.9 % (2-11); NEUTROPHILS 71.9 % (40-80); RDW 16.4 % (11.5-14.5)
[2018-11-01 18:54] LABS: PLATELET COUNT 309 10x3/uL (130-400)
--- NOTE | 2018-11-01 18:55 | NUR ---
AWAKE AND ALERT FAMILY IS PRESENT BED IS LOW AND CALL LIGHT IS IN REACH LCTA AND SKIN IS WARM AND DRY.
[2018-11-01 19:15] LABS: ALBUMIN 3.2 g/dL (3.4-5.0); ALKALINE PHOSPHATASE 92 U/L (46-116); ALT (SGPT) 23 U/L (10-68); BILIRUBIN - TOTAL 1.84 mg/dL (0.2-1.3); CALCIUM 7.8 mg/dL (8.5-10.1); CARBON DIOXIDE 27.4 mmol/L (21.0-32.0); CHLORIDE - SERUM 98 mmol/L (98-107); CKMB 0.3 U/L (0.0-3.6); CREATINE KINASE 22 UL (21-215); CREATININE - SERUM 1.5 mg/dL (0.6-1.3); MAGNESIUM - SERUM 1.4 mg/dL (1.8-2.4); PROTEIN - SERUM 7.2 g/dL (6.4-8.2); SODIUM 139 mmol/L (136-145); THYROID STIMULATING HORMONE 0.71 uIU/mL (0.36-3.74); UREA NITROGEN 28 mg/dL (7-18); eGFR NON AFRICAN AMERICAN 35 mL/min (90-120)
[2018-11-01 19:28] LABS: CALC OSMOLALITY 288 mosm/kg (275-300); GLUCOSE 183 mg/dL (74-106); TROPONIN-I < 0.017 ng/mL (0.000-0.060)
--- NOTE | 2018-11-01 19:59 | NUR ---
IV STARTED TO LEFT FOREARM WITH 20 VILLA AT THIS TIME TIMES ONE TRY
[2018-11-01 20:38] VITALS: BP 147/75
[2018-11-01 22:28] LABS: APPEARANCE CLEAR (CLEAR); BACTERIA FEW /hpf (NONE SEEN); BILIRUBIN NEGATIVE (NEGATIVE); COLOR DK YELLOW (YELLOW); EPITHELIAL CELLS 0-5 /hpf (0-5); GLUCOSE NEGATIVE (NEGATIVE); KETONE NEGATIVE (NEGATIVE); NITRITE NEGATIVE (NEGATIVE); PROTEIN TRACE mg/dL (NEGATIVE); RED CELLS - URINE OCC /hpf (0-5); UROBILINOGEN NORMAL (NORMAL); WHITE CELLS - URINE 0-5 /hpf (0-5)
[2018-11-02] VITALS: BP 112/71
--- NOTE | 2018-11-02 | NUR ---
I have reviewed this patient and I concur with the Shift Assessment completed by the Licensed Practical Nurse today this shift.
[2018-11-02 04:00] VITALS: BP 108/68
[2018-11-02 08:18] VITALS: BP 147/72
--- NOTE | 2018-11-02 08:20 | NUR ---
RECIEVED BEDSIDE REPORT. AM ROUNDS COMPLETED. VVS, WITH SBP OF 145, PT AAOX3, NO S/S OF RR DISTRESS, RR EVEN AND UNLABORED. PT RESTING IN BED, DENIES ANY NEEDS AT THIS TIME. WILL CTM. CL IN REACH, BED IN LOW, SR UP X2.
--- NOTE | 2018-11-02 09:10 | NUR ---
PT OUT FOR CT SCAN.
--- NOTE | 2018-11-02 10:00 | NUR ---
PT BACK FROM CT. STATES SHE IS A LITTLE EXHAUSTED. DENIES ANY NEEDS AT THIS TIME. WILL CTM. CL IN REACH, BED IN LOW, SR UP X2.
--- NOTE | 2018-11-02 12:28 | NUR ---
PLACED SCD ON PT. ALL MEDS ORDERED BY PROVIDER AT THIS TIME. GIVEN. PT STATES SHE FEELS LETHARGIC. WILL CTM. PIOGLITAZONE, NOT IN PYXIS, NOTIFIED PHARMACY.
[2018-11-02 12:32] VITALS: BP 148/75
[2018-11-02 15:59] VITALS: BP 139/62
--- NOTE | 2018-11-02 16:45 | NUR ---
PT PTASSIUM HAS BEEN 3.0 SINCE 11/01/18. NOTIFIED DR LICONA. PT PLACED ON ELECTROLYTE PROTOCOL.
--- NOTE | 2018-11-02 17:20 | NUR ---
LAB CALLED, PT D-DIMER 2.19. NOTIFIED DR LICONA. PT STATES SHE IS HAVING A GENERALIZED BODY ACHE AND HEADACHE. PO 500MG TYLENOL GIVEN AT THIS TIME. WILL CTM. CL IN REACH, BED IN LOW.
--- NOTE | 2018-11-02 18:08 | NUR ---
REASSESED PT. PT STATES SHE IS FEELING A LOT BETTER NOW. PT ON THE PHONE AT THIS TIME. WILL CTM.
[2018-11-02 18:38] VITALS: Ht 168.9 cm; Wt 140.6 kg
--- NOTE | 2018-11-02 19:30 | NUR ---
RECEIVED REPORT, WILL ASSUME CARE OF PT, DENIES ANY NEEDS, VISITING WITH FAMILY, BED IS LOW, SRX2, CALL LIGHT IN REACH, WILL CONTINUE PLAN OF CARE
[2018-11-02 20:00] VITALS: BP 140/62
--- NOTE | 2018-11-02 21:29 | NUR ---
PT REQUESTING SCD TO BE OFF, SHE IS NOW ON XARELTO. [id number] 38 UNITS OF LANTUS
[2018-11-03] VITALS: BP 126/63
--- NOTE | 2018-11-03 00:12 | NUR ---
SLEEPING, BED IS LOW, SRX2, CALL LIGHT IN REACH, WILL CONTINUE PLAN OF CARE
--- NOTE | 2018-11-03 00:35 | NUR ---
ASKING FOR TYLENOL FOR BACK PAIN, GAVE ORDER
--- NOTE | 2018-11-03 02:56 | NUR ---
I have reviewed this patient and I concur with the Shift Assessment completed by the Licensed Practical Nurse today this shift.
[2018-11-03 04:00] VITALS: BP 178/64
[2018-11-03 05:51] LABS: BASOPHILS 0.1 % (0-2); EOSINOPHILS 1.5 % (0-7); HEMATOCRIT 29.6 % (36.0-48.0); HEMOGLOBIN 8.9 g/dL (12-16); IMMATURE GRANULOCYTES 0.4 % (0-5); LYMPHOCYTES 13.6 % (15-50); MCH 24.3 pg (26.0-34.0); MCHC 30.1 g/dL (31.0-37.0); MCV 80.9 fL (80.0-100.0); NEUTROPHILS 69.4 % (40-80); PLATELET COUNT 266 10x3/uL (130-400); RBC 3.66 10x6/uL (4.00-5.40); RDW 16.3 % (11.5-14.5); WBC 8.1 10x3/uL (4.8-10.8)
[2018-11-03 05:55] LABS: ANION GAP 14.7 mmol/L (8-16); CALCIUM 7.4 mg/dL (8.5-10.1); CARBON DIOXIDE 24.5 mmol/L (21.0-32.0); CREATININE - SERUM 1.4 mg/dL (0.6-1.3); POTASSIUM - SERUM 3.2 mmol/L (3.5-5.1)
--- NOTE | 2018-11-03 08:00 | NUR ---
RECIEVED BEDSIDE REPORT. AM ROUNDS COMPLETED. VVS, AAOX3, RR EVEN AND UNLABORED. PT STATES SHE IS HAVING DIFFICULTY BREATHING. RAISED THE HOB, INCREASED O2 TO 4L. PT STATES SHE FEELS BETTER NOW. AM MEDS GIVEN PT DENIES ANY FURTHER NEEDS AT THIS TIME. WILL CPOC. CL IN REACH, BED IN LOW, SR UPX2.
[2018-11-03 09:00] VITALS: BP 131/62
--- NOTE | 2018-11-03 11:10 | NUR ---
2UNITS OF HUMALOG GIVEN. PT OUT FOR VQ SCAN AT THIS TIME. WILL CPOC.
[2018-11-03 12:41] VITALS: BP 123/70
--- NOTE | 2018-11-03 12:45 | NUR ---
PT BACK FROM VQ SCAN. STATES SHE IS HAVING A HEADACHE. PO PRN 500MG TYLENOL GIVEN AT THIS TIME. WILL CTM. CL IN REACH, BED IN LOW, SR UP X2.
--- NOTE | 2018-11-03 13:03 | NUR ---
RECIEVED BEDSIDE REPORT. AM ROUNDS COMPLETED. VSS, AAOX3, PT C/O THAT SHE WAS HAVING DIFFICULTY BREATHING. INCREASED HER O2 TO 4L. AM MEDS GIVEN. PT DENIES ANY FURTHER NEEDS FOR COMFORT CARE. WILL CPOC. CL IN REACH, BED IN LOW, SR UP X2.
[2018-11-03 16:25] VITALS: BP 138/99
--- NOTE | 2018-11-03 19:34 | NUR ---
RECEIVED REPORT, WILL ASSUME CARE OF PT, WATCHING TV, DENIES ANY NEEDS AT THIS TIME, BED IS LOW, SRX2, CALL LIGHT IN REACH, WILL CONTINUE PLAN OF CARE
--- NOTE | 2018-11-03 20:20 | NUR ---
[id number]- PT WANTS ONLY 38 UNITS OF LANTUS
[2018-11-03 20:26] VITALS: BP 150/70
--- NOTE | 2018-11-04 00:32 | NUR ---
COMPLAINS OF BACK PAIN, GAVE TYLENOL ORDER
[2018-11-04 01:37] VITALS: BP 153/76
--- NOTE | 2018-11-04 01:51 | NUR ---
I have reviewed this patient and I concur with the Shift Assessment completed by the Licensed Practical Nurse today this shift.
[2018-11-04 05:31] VITALS: BP 149/74
--- NOTE | 2018-11-04 08:00 | NUR ---
RECIEVED BEDSIDE REPORT. AM ROUNDS COMPLETED. AAOX4, VSS, NO S/S OF RR DISTRESS. AM MEDS GIVEN. PT STATES SHE IS HAVING A LITTLE DIFFICULTY BREATHING ASSESSED, BUT SPO2 98 ON 2L. HELP ELEVATE THE HEAD OF PT'S BED. PT STATES SHE IS FEELING ALOT BETTER. WILL CTM CL IN REACH, BED IN LOW, SR UP X2.
[2018-11-04 08:23] VITALS: BP 156/79
[2018-11-04 10:24] LABS: BASOPHILS 0.1 % (0-2); EOSINOPHILS 1.9 % (0-7); HEMATOCRIT 30.6 % (36.0-48.0); HEMOGLOBIN 9.1 g/dL (12-16); IMMATURE GRANULOCYTES 0.2 % (0-5); LYMPHOCYTES 7.8 % (15-50); MCH 24.1 pg (26.0-34.0); MCHC 29.7 g/dL (31.0-37.0); MCV 81.2 fL (80.0-100.0); MEAN PLATELET VOLUME 9.6 fL (7.4-10.4); MONOCYTES 11.4 % (2-11); NEUTROPHILS 78.6 % (40-80); PLATELET COUNT 298 10x3/uL (130-400); RBC 3.77 10x6/uL (4.00-5.40); WBC 8.3 10x3/uL (4.8-10.8)
[2018-11-04 10:44] LABS: ANION GAP 11.1 mmol/L (8-16); CALCIUM 7.6 mg/dL (8.5-10.1); CARBON DIOXIDE 27.1 mmol/L (21.0-32.0); CREATININE - SERUM 1.4 mg/dL (0.6-1.3); POTASSIUM - SERUM 3.2 mmol/L (3.5-5.1)
[2018-11-04 11:52] VITALS: BP 165/82
--- NOTE | 2018-11-04 11:54 | NUR ---
PT BS 170, 2 UNIT OF HUMALOG GIVEN AT THIS TIME. WILL CPOC.
--- NOTE | 2018-11-04 14:11 | NUR ---
Nutrition follow-up: Diet: ADA consistent CHO PO Intake ~75% average of last 3 meals Labs reviewed +BM Wt: 290# PO intake good at this time RDN following.
--- NOTE | 2018-11-04 14:15 | NUR ---
PT C/O OF GENERALIZED BODY PAIN. PO 500MG TYLENOL WAS GIVEN AT THIS TIME. WILL CTM. CL IN REACH, BED IN LOW, SR UP X2. DAUGHTER AT BEDSIDE.
--- NOTE | 2018-11-04 15:19 | NUR ---
REASSESED PT PAIN LEVEL PT STATES IT IS A 5/10. STATES THEIR IS LITTLE OR NO CHANGES. NOTIFIED PT UNDERGRADUATE INTERNLINDSAY. WILL CPOC.
[2018-11-04 17:17] VITALS: BP 125/65
[2018-11-04 21:23] VITALS: BP 137/59
--- NOTE | 2018-11-04 22:30 | NUR ---
RPEORT RECIEVED AND ROUNDING COMPLETE. PT LAYING IN BED EYESW CLOSED. PT EASILY AROUSED BY ME WALKING INTO ROOM. PT SHOOK HER HEAD NO WHEN I ASKED IF SHE NEEDED ANYTHING. PT LAYING IN SUPINE POSITION. CALL LIGHT WITHIN REACH.
[2018-11-05] VITALS (7 sets, daily range): BP systolic 120–142; BP diastolic 63–89
--- NOTE | 2018-11-05 00:03 | NUR ---
CRUSHER WET GROUND MICA ALERTED THAT PT'S O2 READING IS 75. CHECKED PT'S O2 75, PUT PT BACK ON HER NASAL CANNULA AT O2 AT 2L. O2 ONLY WENT UP TO 85. O2 UP TO 4L, 02 STAT UP TO 92. NOTIFIED RT.
--- NOTE | 2018-11-05 03:44 | NUR ---
PATIENT RESTING COMFORTABLY IN BED. RESPIRATIONS ARE EVEN AND UNLABORED. NO S/S OF DISTRESS. CALL LIGHT WITHIN REACH. WILL CPOC.
[2018-11-05 05:41] LABS: BASOPHILS 0.1 % (0-2); EOSINOPHILS 0.9 % (0-7); HEMATOCRIT 32.1 % (36.0-48.0); HEMOGLOBIN 9.6 g/dL (12-16); IMMATURE GRANULOCYTES 0.1 % (0-5); LYMPHOCYTES 7.3 % (15-50); MCH 24.2 pg (26.0-34.0); MCHC 29.9 g/dL (31.0-37.0); MCV 81.1 fL (80.0-100.0); MEAN PLATELET VOLUME 9.5 fL (7.4-10.4); MONOCYTES 9.2 % (2-11); NEUTROPHILS 82.4 % (40-80); PLATELET COUNT 354 10x3/uL (130-400); RBC 3.96 10x6/uL (4.00-5.40); RDW 16.1 % (11.5-14.5); WBC 8.1 10x3/uL (4.8-10.8)
[2018-11-05 05:45] LABS: ANION GAP 9.7 mmol/L (8-16); CREATININE - SERUM 1.4 mg/dL (0.6-1.3)
[2018-11-05 05:49] LABS: POTASSIUM - SERUM 3.7 mmol/L (3.5-5.1)
--- NOTE | 2018-11-05 08:19 | NUR ---
PT EATING BREAKFAST AND CO PAIN. WILL MEDICATE ACCORDINGLY.
--- NOTE | 2018-11-05 19:25 | NUR ---
RECIEVED BEDSIDE REPORT FROM [facility]. PT LAYING IN BED ALERT AND ORIENTED. NO S/S OF DISTRESS. PT DENIES ANY PAIN OR NEEDS AT THIS TIME. BED LOW CALL LIGHT WITHIN REACH. WILL CONTINUE TO MONITOR.
--- NOTE | 2018-11-06 02:05 | NUR ---
PT RESTING WITH EYES CLOSED RR EVEN AND UNLABORED. BED LOW CALL LIGHT WITHIN REACH. PT C-PAP IN USE. WILL CONTINUE TO MONITOR.
--- NOTE | 2018-11-06 03:19 | NUR ---
I have reviewed this patient and I concur with the Shift Assessment completed by the Licensed Practical Nurse today this shift.
[2018-11-06 05:08] LABS: BASOPHILS 0.1 % (0-2); EOSINOPHILS 1.6 % (0-7); HEMATOCRIT 31.1 % (36.0-48.0); HEMOGLOBIN 9.2 g/dL (12-16); IMMATURE GRANULOCYTES 0.4 % (0-5); LYMPHOCYTES 8.5 % (15-50); MCH 24.1 pg (26.0-34.0); MCHC 29.6 g/dL (31.0-37.0); MCV 81.4 fL (80.0-100.0); MEAN PLATELET VOLUME 9.5 fL (7.4-10.4); MONOCYTES 11.3 % (2-11); NEUTROPHILS 78.1 % (40-80); PLATELET COUNT 352 10x3/uL (130-400); RBC 3.82 10x6/uL (4.00-5.40); RDW 16.2 % (11.5-14.5); WBC 7.6 10x3/uL (4.8-10.8)
[2018-11-06 05:21] VITALS: BP 147/60
[2018-11-06 05:26] LABS: ANION GAP 13.2 mmol/L (8-16); CALCIUM 8.1 mg/dL (8.5-10.1); CARBON DIOXIDE 28.8 mmol/L (21.0-32.0); CREATININE - SERUM 1.3 mg/dL (0.6-1.3)
--- NOTE | 2018-11-06 09:33 | NUR ---
REHAB PRESCREENING Rehab referral received and chart reviewed. PT evaluation has been ordered. Rehab will continue to follow for admission criteria. Thank you for this referral! Alicia Umana, STRUCTURAL SHOP HELPER Rehab PD
[2018-11-06 13:09] VITALS: BP 136/95
--- NOTE | 2018-11-06 16:35 | MORECARE ---
CASE MANAGEMENT DISCHARGE SUMMARY PATIENT: SUNDAR MCDONALD UNIT: [id number] ADM DATE: 11/01/18 AGE: 78 : 40 SEX: F ROOM/BED: D.2138 AUTHOR: NEIL,DOC PHYSICIAN: REFERRING PHYSICIAN: ERA LICONA MD DATE OF SERVICE: 11/06/18 Discharge Plan Patient Name: SUNDAR MCDONALD Facility: [facility]:[place] : 1940 Planned Disposition: Inpatient Rehab Anticipated Discharge Date: Discharge Date: Expected LOS: Initial Reviewer: [email or web address] Initial Review Date: 11/06/2018 Generated: 11/06/18 5:35 pm DCPIA - Discharge Planning Initial Assessment Updated by UZIEL: Martin Haney on 11/06/18 4:33 pm * Is the patient Alert and Oriented? Yes * How many steps to enter\exit or inside your home? * PCP DR. GANDARA * Pharmacy [facility] * Preadmission Environment Home Alone * ADLs Independent * Equipment CPAP Rolling Walker Tub Bench * Other Equipment WALKER HAS WHEELS, SEAT AND BRAKES [employer] - MED[employer] EQUIPMENT PROVIDER * List name and contact numbers for known caregivers / representatives who currently or will assist patient after discharge: DEMETRIA LOUIE, SON, DONTE LOUIE, SON, OK TO TALK TO GRACY WYATT, DTR, * Verbal permission to speak to the caregivers and representatives has been obtained from the patient. Yes * Community resources currently utilized None * Please name any agencies selected above. NONE * Additional services required to return to the preadmission environment? Yes * Can the patient safely return to the preadmission environment? Yes * Has this patient been hospitalized within the prior 30 days at any hospital? No Coverage Notice Reviewer: [email or web address] - Martin Haney Notice Issued Date-Time: 11/06/2018 10:25 Notice Type: IM Discharge Notice Notice Delivered To: Patient Relationship to Patient: Fruit Farmer Name: Delivery Method: HAND - Hand Delivered Manuela Days: Prior Verbal Notification: Recipient Understood Notice: Yes Recipient Signature: Yes Med Rec Note Co-signed by Attending: Coverage Notice Comment: Patient Name: SUNDAR MCDONALD Page 11309 at 1635 All edits/amendments must be made on the electronic document DICTATION DATE: 11/06/181634 DELICATESSEN GOODS STOCK CLERK: CRISTOPHER 11/06/181634 RPT#: [id number] DC DATE: STATUS: ADM IN [facility] [address] [place] [address] END OF REPORT
--- NOTE | 2018-11-06 16:44 | MORECARE ---
CASE MANAGEMENT DISCHARGE SUMMARY PATIENT: SUNDAR MCDONALD UNIT: [id number] ADM DATE: 11/01/18 AGE: 78 : 40 SEX: F ROOM/BED: D.6232 AUTHOR: NEIL,DOC PHYSICIAN: REFERRING PHYSICIAN: ERA LICONA MD DATE OF SERVICE: 11/06/18 Discharge Plan Patient Name: SUNDAR MCDONALD Facility: [facility]:[place] : 1940 Planned Disposition: Inpatient Rehab Anticipated Discharge Date: Discharge Date: Expected LOS: Initial Reviewer: [email or web address] Initial Review Date: 11/06/2018 Generated: 11/06/18 5:44 pm Comments DCP- Discharge Planning Updated by [email or web address]: Martin Haney on 11/06/18 3:[address] Patient Name: SUNDAR MCDONALD Admission Status: Urgent Accout number: [id number] Admission Date: 11-01-2018 : 1940 Admission Diagnosis:PNEUMONIA, UNSPECIFIED ORGANISM Attending: ERA LICONA Current LOS: 5 Anticipated DC Date: Planned Disposition: Inpatient Rehab Primary Insurance: MEDICARE A & B PLANNED EXTERNAL PROVIDER: [facility] Discharge Planning Comments: CM RECEIVED INPATIENT REHAB PRESCREENING ORDER, MET WITH PT IN ROOM TO DISCUSS DISCHARGE PLANNING AND NEEDS. PT REPORTS LIVING AT HOME INDEPENDENTLY AND ALONE. . PT HAS CPCP, TUB BENCH AND WALKER WITH WHEELS SEAT AND BRAKES FROM [employer]. PT HAS NO OUTSIDE SERVICES ASSISTING IN THE HOME. CM DISCUSSED AVAILABILITY OF HOME HEALTH, REHAB SERVICES AND MEDICAL EQUIPMENT. PT WOULD LIKE REFERRAL TO INPATIENT REHAB AT [place]. PT REPORTS HER SON WILL PICK HER UP FOR DISCHARGE HOME AFTER REHAB. IMPORTANT MESSAGE FROM MEDICARE PROVIDED AND EXPLAINED. CM WAITING INPATIENT REHAB PRESCREENING AND ADMISSION DETERMINATION FROM [facility]. Promotion Specialist: Martin Haney DCPIA - Discharge Planning Initial Assessment Updated by [email or web address]: Martin Haney on 11/06/18 4:33 pm * Is the patient Alert and Oriented? Yes * How many steps to enter\exit or inside your home? * PCP DR. GANDARA * Pharmacy [facility] * Preadmission Environment Home Alone * ADLs Independent * Equipment CPAP Rolling Walker Tub Bench * Other Equipment WALKER HAS WHEELS, SEAT AND BRAKES [employer] - MED[employer] EQUIPMENT PROVIDER * List name and contact numbers for known caregivers / representatives who currently or will assist patient after discharge: DEMETRIA LOUIE, SON, DONTE LOUIE, SON, OK TO TALK TO CYNTHIAANEL EDMUNDO, DTR, * Verbal permission to speak to the caregivers and representatives has been obtained from the patient. Yes * Community resources currently utilized None * Please name any agencies selected above. NONE * Additional services required to return to the preadmission environment? Yes * Can the patient safely return to the preadmission environment? Yes * Has this patient been hospitalized within the prior 30 days at any hospital? No Coverage Notice Reviewer: [email or web address] Dhaval Haney Notice Issued Date-Time: 11/06/2018 10:25 Notice Type: IM Discharge Notice Notice Delivered To: Patient Relationship to Patient: Marketing Communications Associate Name: Delivery Method: HAND - Hand Delivered Manuela Days: Prior Verbal Notification: Recipient Understood Notice: Yes Recipient Signature: Yes Med Rec Note Co-signed by Attending: Coverage Notice Comment: Last DP export: 11/06/18 3:35 p Patient Name: SUNDAR MCDONALD Page [id number] at 1644 All edits/amendments must be made on the electronic document DICTATION DATE: 11/06/181642 DAIRY FARMWORKER: CRISTOPHER 11/06/181642 RPT#: [id number] DC DATE: STATUS: ADM IN [facility] [address] [place] [address] END OF REPORT
[2018-11-06 17:03] VITALS: BP 170/66
--- NOTE | 2018-11-06 20:19 | NUR ---
PT RESTING IN BED ALERT AND ORIENTED. RR EVEN AND UNLABORED. NO S/S OF DISTRESS. BED LOW CALL LIGHT WITHIN REACH. WILL CONTINUE TO MONITOR.
[2018-11-06 20:57] VITALS: BP 158/58
[2018-11-06 21:07] LABS: INFLUENZA A PCR Negative (Negative); INFLUENZA B PCR Negative (Negative)
[2018-11-07 05:27] VITALS: BP 154/77
--- NOTE | 2018-11-07 05:51 | NUR ---
I have reviewed this patient and I concur with the Shift Assessment completed by the Licensed Practical Nurse today this shift.
[2018-11-07 06:56] LABS: BASOPHILS 0.1 % (0-2); EOSINOPHILS 0.8 % (0-7); HEMATOCRIT 31.5 % (36.0-48.0); HEMOGLOBIN 9.4 g/dL (12-16); IMMATURE GRANULOCYTES 0.6 % (0-5); LYMPHOCYTES 7.6 % (15-50); MCHC 29.8 g/dL (31.0-37.0); MCV 80.4 fL (80.0-100.0); MEAN PLATELET VOLUME 9.1 fL (7.4-10.4); MONOCYTES 12.9 % (2-11); PLATELET COUNT 320 10x3/uL (130-400); RBC 3.92 10x6/uL (4.00-5.40); RDW 16.1 % (11.5-14.5); WBC 7.2 10x3/uL (4.8-10.8)
[2018-11-07 07:13] LABS: ANION GAP 13.3 mmol/L (8-16); CALCIUM 8.4 mg/dL (8.5-10.1); CARBON DIOXIDE 28.6 mmol/L (21.0-32.0); CREATININE - SERUM 1.3 mg/dL (0.6-1.3); POTASSIUM - SERUM 3.9 mmol/L (3.5-5.1)
--- NOTE | 2018-11-07 07:15 | NUR ---
REPORT RECEIVED FROM RED LEAD BURNER. PATIENT AWAKE, ALERT AND ORIENTED X 4. VSS. PATIENT DENIES ANY NEEDS OR PAIN. WILL CONTINUE WITH PLAN OF CARE. SR UP X 2 BED IN LOW POSITION AND CALL LIGHT IN REACH.
[2018-11-07 09:20] VITALS: BP 125/95
--- NOTE | 2018-11-07 09:30 | NUR ---
PATIENT UP TO TOILET AND BEDSIDE CHAIR. PATIENT WATCHING TV. CALL LIGHT IN REACH.
--- NOTE | 2018-11-07 10:50 | NUR ---
ASSISTED PATIENT BACK TO BED. PATIENT DENIES ANY NEEDS OR PAIN. BED IN LOW POSITION AND CALL LIGHT IN REACH.
--- NOTE | 2018-11-07 11:25 | NUR ---
OT NOTE: REQUIRED EXTENDED TMT TIME TODAY DUE TO BOWEL INCONTINENCE. PT ABLE TO PERFORM BED MOB TO INCLUDE SUPINE TO SIT WITH MIN/MOD ASSIST. NOTICED THAT PT HAD SMALL BM IN BED SO ASKED IF WE COULD WALK TO BATHROOM. PT ABLE TO AMB WITH MOD ASSIST AND USE OF RW WITH DECREASED BALANCE AND COORDINATION DURING AMB. ALSO, PT HAD BM ALL THE WAY TO BATHROOM. PT ASSISTED TO TOILET WITH MAX ASSIST; MAX ASSIST WITH ALL HYGIENE WHILE SEATED ON TOILET. PT FELT VERY BAD FOR INCONT EPISODE AND APPOLIGISED FREQUENTLY. AMB BACK TO BED AND THE INCONT CONTINUED. ASSISTED PT TO BED; BED MOB WITH MIN ASSIST; CLEANED PT WHILE IN BED AND CHANGED CLOTHING. PT WAS VERY WEAK DURING AMB BACK TO BED..CONTINUED TO STATE THAT SHE WASNT GOING TO MAKE IT. JACKSON HALE, OTR/L
--- NOTE | 2018-11-07 12:03 | HP ---
PATIENT: SUNDAR MCDONALD MEDICAL RECORD: [id number] ACCOUNT: [id number] LOCATION:[address] : 40 ADMISSION DATE: 11/01/18 PCP: BRIANNE GANDARA DO HISTORY AND PHYSICAL EXAMINATION HISTORY OF PRESENT ILLNESS: Ms. Mcdonald is a 78-year-old white female who presents to the office today complaining of fever, generalized pain, and achiness, which started earlier today. She is short of breath. She has had some chest tightness, but not much cough. She underwent an ablation by Dr. Kelly at [facility] a week ago. Her chest x-ray today shows a possible lingular infiltrate. No widening of the mediastinum is noted. The heart border appears stable. Her white count is normal. Her flu test is negative, but given her clinical appearance, her chronic illnesses which include diabetes and her risk she is going to be admitted for further evaluation and therapy. I cannot rule out the possibility of influenza with a normal white count despite a negative flu test. PAST MEDICAL HISTORY: Significant for diabetes with neuropathy, morbid obesity, cardiac arrhythmia with recent ablation, history of TIAs, hyperlipidemia, diabetic neuropathy, atrial fibrillation, and hypertension. PAST SURGICAL HISTORY: Include a cholecystectomy, a colonoscopy in 2004. ALLERGIES OR INTOLERANCES: INCLUDE AUGMENTIN, CODEINE, AND SIMVASTATIN. MEDICATIONS: Include Januvia 100 mg a day, lisinopril 20 mg twice a day, hydrochlorothiazide 25 mg a day, potassium 20 mEq a day, cholestyramine daily, metoprolol ER 50 mg once a day, pioglitazone 30 mg one half daily, amlodipine 10 mg a day, furosemide 40 mg a day, metformin 1000 mg twice a day, Xarelto 20 mg a day, sotalol 160 twice a day, alendronate 70 once a week, omeprazole 20 a day, sucralfate, vitamin B12 1000 mg daily, vitamin D 400 units daily, an aspirin a day, Lantus 35-40 units daily, and Propafenone ER 225 once a day. FAMILY HISTORY: Significant for hypertension and type 2 diabetes. SOCIAL HISTORY: The patient is retired. She does not smoke. REVIEW OF SYSTEMS: She has had fever, fatigue, shortness of breath, some chest tightness, but minimal cough. No nausea or vomiting. She has got myalgias and arthralgias. PHYSICAL EXAMINATION: GENERAL: Morbidly obese, in no acute distress, but obviously does not feel well. HEENT: Sclerae nonicteric. Mucous membranes appear a little dry. HEART: Regular with a rate in the 80s. LUNGS: With some bilateral coarse sounds. ABDOMEN: Soft. EXTREMITIES: Lower extremities reveal no edema. IMPRESSION: 1. Lingular pneumonia. 2. Cannot rule out influenza. We will check a PCR at the hospital. 3. Atrial fibrillation with recent ablation, now in atrial flutter. 4. Diabetes. HISTORY AND PHYSICAL [id number] SUNDAR MCDONALD Kunal 5. Morbid obesity. 6. History of transient ischemic attacks. 7. Hyperlipidemia. 8. Diabetic neuropathy. 9. Arthritis. 10. Hypertension. 11. Vitamin D deficiency. PLAN: Admit. We will recheck labs and cardiac enzymes, place on telemetry. We will start on Tamiflu and check an influenza PCR, start IV antibiotics, and pulmonary toilet. We will get a CT of the chest without contrast per request of Dr. Kelly. I called and discussed with Dr. Frank who is the hospitalist this week and I also called and discussed with Dr. Kelly, her customs and immigration officer, in [place]. See orders for rest of plan. TRANSINT:[id number] Voice Confirmation ID: [id number] DOCUMENT ID: [id number] BRIANNE GANDARA DO at 1203 CC: [id number] DICTATION DATE: 11/01/181812 [employer]: 11/01/183 ADM IN [place] [id number] [place] [address]
[2018-11-07 12:44] VITALS: BP 138/62
--- NOTE | 2018-11-07 12:45 | NUR ---
OT NOTE CORRECTION FOR 11/07/18: PT PERFORMED BED MOB WITH MIN ASSIST TODAY. PT REPORTED THAT SHE WAS TIRED SHE HAD BEEN SITTING UP FOR 2 HRS THIS AM. ABLE TO HARRIET GOWN WITH MIN ASSIST AND SLIP ON SHOES INDEP. AMB TO BATHROOM WITH WALKER AND MIN ASSIST; ABLE TO PERFORM IN ROOM AMBULATION WITH MIN ASSIST; AMB IN HALLWAY TO IMPROVE FUNCITONAL ENDURANCE X APPROX 40 FT WITH MIN ASSIST, RW, GAIT BELT, AND 02 . VERY FATIGUED UPON RETURN TO ROOM. JACKSON HALE, OTR/L
--- NOTE | 2018-11-07 13:54 | MORECARE ---
CASE MANAGEMENT DISCHARGE SUMMARY PATIENT: SUNDAR MCDONALD UNIT: [id number] ADM DATE: 11/01/18 AGE: 78 : 40 SEX: F ROOM/BED: D.2138 AUTHOR: KEVIN TREJO PHYSICIAN: REFERRING PHYSICIAN: ERA LICONA MD DATE OF SERVICE: 11/07/18 Discharge Plan Patient Name: SUNDAR MCDONALD Facility: [facility]:[place] : 1940 Planned Disposition: Inpatient Rehab Anticipated Discharge Date: 11/08/18 Discharge Date: Expected LOS: 7 Initial Reviewer: [id number] Initial Review Date: 11/06/2018 Generated: 11/07/18 2:54 pm Comments DCP- Discharge Planning Updated by [id number]: Martin Haney on 11/07/18 12:[address] Patient Name: SUNDAR MCDONALD Encounter No: [id number] : 1940 Primary Insurance: MEDICARE A & B Anticipated DC Date: 11-08-2018 Planned Disposition: Inpatient Rehab External Planned Provider: [facility] INPATIENT REHAB DCP follow-up note: CM SPOKE TO JUDE MILES WHO ASKED IF REHAB WILL ACCEPT PT TODAY. CM SPOKE TO EBEN OF INPATIENT REHAB, THEY PLAN TO ACCEPT PT TOMORROW,11-08-18 FOR REHAB THEY HAVE 4 ADMITS TODAY ALREADY. PT NOTIFIED, IN AGREEMENT WITH DISCHARGE TO INPATIENT REHAB. CM NOTIFIED JUDE MILES. [facility] INPATIENT REHAB TO CONTACT MED 2 NURSE WITH ROOM NUMBER WHEN READY TO ACCEPT PT AND NURSE REPORT. AGUSTINA Catherine DCP- Discharge Planning Updated by [id number]: Martin Haney on 11/06/18 3:[address] Patient Name: SUNDAR MCDONALD Admission Status: Urgent Accout number: [id number] Admission Date: 11-01-2018 : 1940 Admission Diagnosis:PNEUMONIA, UNSPECIFIED ORGANISM Attending: ERA LICONA Current LOS: 5 Anticipated DC Date: Planned Disposition: Inpatient Rehab Primary Insurance: MEDICARE A & B PLANNED EXTERNAL PROVIDER: [facility] INPATIENT REHAB Discharge Planning Comments: CM RECEIVED INPATIENT REHAB PRESCREENING ORDER, MET WITH PT IN ROOM TO DISCUSS DISCHARGE PLANNING AND NEEDS. PT REPORTS LIVING AT HOME INDEPENDENTLY AND ALONE. . PT HAS CPCP, TUB BENCH AND WALKER WITH WHEELS SEAT AND BRAKES FROM [employer]. PT HAS NO OUTSIDE SERVICES ASSISTING IN THE HOME. CM DISCUSSED AVAILABILITY OF HOME HEALTH, REHAB SERVICES AND MEDICAL EQUIPMENT. PT WOULD LIKE REFERRAL TO INPATIENT REHAB AT [place]. PT REPORTS HER SON WILL PICK HER UP FOR DISCHARGE HOME AFTER REHAB. IMPORTANT MESSAGE FROM MEDICARE PROVIDED AND EXPLAINED. CM WAITING INPATIENT REHAB PRESCREENING AND ADMISSION DETERMINATION FROM [facility] INPATIENT REHAB. Netezza Architect: Martin Haney DCPIA - Discharge Planning Initial Assessment Updated by [id number]: Martin Haney on 11/06/18 4:33 pm * Is the patient Alert and Oriented? Yes * How many steps to enter\exit or inside your home? * PCP DR. GANDARA * Pharmacy [facility] * Preadmission Environment Home Alone * ADLs Independent * Equipment CPAP Rolling Walker Tub Bench * Other Equipment WALKER HAS WHEELS, SEAT AND BRAKES [employer] - [employer] EQUIPMENT PROVIDER * List name and contact numbers for known caregivers / representatives who currently or will assist patient after discharge: DEMETRIA LOUIE, SON, DONTE LOUIE, SON, OK TO TALK TO GRACY WYATT DTR, * Verbal permission to speak to the caregivers and representatives has been obtained from the patient. Yes * Community resources currently utilized None * Please name any agencies selected above. NONE * Additional services required to return to the preadmission environment? Yes * Can the patient safely return to the preadmission environment? Yes * Has this patient been hospitalized within the prior 30 days at any hospital? No Coverage Notice Reviewer: [id number] - Martin Haney Notice Issued Date-Time: 11/06/2018 10:25 Notice Type: IM Discharge Notice Notice Delivered To: Patient Relationship to Patient: Laser Machine Operator Name: Delivery Method: HAND - Hand Delivered Manuela Days: Prior Verbal Notification: Recipient Understood Notice: Yes Recipient Signature: Yes Med Rec Note Co-signed by Attending: Coverage Notice Comment: Last DP export: 11/06/18 3:44 p Patient Name: SUNDAR MCDONALD Page [phone] at 1354 All edits/amendments must be made on the electronic document DICTATION DATE: 11/07/184 CHASSIS WIRER: CRISTOPHER 11/07/18 1354 RPT#: [id number] DC DATE: STATUS: ADM IN [facility] [address] [place] [address] END OF REPORT
--- NOTE | 2018-11-07 15:07 | NUR ---
Pt is on a diabetic diet with 25% average po intake BG 114,137 today Spoke with pt about the importance of nutrition and food toleration Order placed to kitchen Added Glucerna to dinner and breakfast tomorrow RD following
--- NOTE | 2018-11-07 15:36 | NUR ---
PATIENT LAYING IN BED ON BACK WITH EYES CLOSED AND BREATHING EVENLY. HOB ELEVATED 35 DEGREES. VSS. WILL CONTINUE WITH PLAN OF CARE.
[2018-11-07 17:09] VITALS: BP 125/77
[2018-11-07 20:00] VITALS: BP 150/88
--- NOTE | 2018-11-07 20:08 | NUR ---
PT RESTING IN BED WITH ALERT AND ORIENTED. NO S/S OF DISTRESS. RR EVEN AND UNLABORED. BED LOW CALL LIGHT WITHIN REACH. WILL CONTINUE TO MONITOR.
[2018-11-08] VITALS: BP 158/78
[2018-11-08 04:00] VITALS: BP 154/67
--- NOTE | 2018-11-08 04:16 | NUR ---
I have reviewed this patient and I concur with the Shift Assessment completed by the Licensed Practical Nurse today this shift.
--- NOTE | 2018-11-08 04:59 | NUR ---
PT RESTING IN BED WITH EYES CLOSED. CPAP IN PLACE. RR EVEN AND UNLABORED. BED LOW CALL LIGHT WITHIN REACH. WILL CONTINUE TO MONITOR.
[2018-11-08 07:11] LABS: BASOPHILS 0.1 % (0-2); EOSINOPHILS 1.3 % (0-7); HEMATOCRIT 31.1 % (36.0-48.0); HEMOGLOBIN 9.3 g/dL (12-16); IMMATURE GRANULOCYTES 0.3 % (0-5); LYMPHOCYTES 8.8 % (15-50); MCHC 29.9 g/dL (31.0-37.0); MCV 80.2 fL (80.0-100.0); MEAN PLATELET VOLUME 8.9 fL (7.4-10.4); MONOCYTES 13.6 % (2-11); NEUTROPHILS 75.9 % (40-80); PLATELET COUNT 294 10x3/uL (130-400); RBC 3.88 10x6/uL (4.00-5.40); RDW 16.2 % (11.5-14.5)
--- NOTE | 2018-11-08 07:15 | NUR ---
REPORT RECIEVED FROM HERBARIUM CURATOR. PATIENT IS LAYING ON BACK WITH EYES CLOSED AND BREATHING EVENLY. VSS. WILL CONTINUE WITH PLAN OF CARE. SR UP X 2 BED IN LOW POSTION AND CALL LIGHT IN REACH.
[2018-11-08 07:23] LABS: ALBUMIN 2.3 g/dL (3.4-5.0); ANION GAP 12.5 mmol/L (8-16); BILIRUBIN - TOTAL 0.63 mg/dL (0.2-1.3); CALCIUM 8.2 mg/dL (8.5-10.1); CARBON DIOXIDE 28.4 mmol/L (21.0-32.0); CREATININE - SERUM 1.2 mg/dL (0.6-1.3); POTASSIUM - SERUM 3.9 mmol/L (3.5-5.1); PROTEIN - SERUM 6.5 g/dL (6.4-8.2)
[2018-11-08 08:17] VITALS: BP 179/85
--- NOTE | 2018-11-08 10:00 | NUR ---
PATIENT IS STABLE AND UNCHANGED. ASSESSMENT COMPLETED. WILL CONTINUE TO MONITOR.
[2018-11-08 12:22] VITALS: BP 163/81
--- NOTE | 2018-11-08 12:49 | MORECARE ---
CASE MANAGEMENT DISCHARGE SUMMARY PATIENT: SUNDAR MCDONALD UNIT: [id number] ADM DATE: 11/01/18 AGE: 78 : 40 SEX: F ROOM/BED: D.4275 AUTHOR: KEVIN TREJO PHYSICIAN: REFERRING PHYSICIAN: ERA LICONA MD DATE OF SERVICE: 11/08/18 Discharge Plan Patient Name: SUNDAR MCDONALD Facility: [facility]:[place] : 1940 Planned Disposition: Inpatient Rehab Anticipated Discharge Date: 11/08/18 Discharge Date: Expected LOS: 7 Initial Reviewer: [id number] Initial Review Date: 11/06/2018 Generated: 11/08/18 1:49 pm Comments DCP- Discharge Planning Updated by [id number]: Martin Haney on 11/08/18 11:[address] Patient Name: SUNDAR MCDONALD Encounter No: [id number] : 1940 Primary Insurance: MEDICARE A & B Anticipated DC Date: 11-08-2018 Planned Disposition: Inpatient Rehab External Planned Provider: [facility] INPATIENT REH[facility] DCP follow-up note: CM SPOKE TO EBEN OF [facility] INPATIENT REHAB, THEY WILL ACCEPT PT TODAY. CM SPOKE TO JUDE MILES WHO WILL DISCHARGE PT TO REHAB TODAY. PT NOTIFIED AND IN AGREEMENT WITH DISCHARGE TO REHAB AT [facility]. CARE MANAGEMENT COORDINATOR NURSE NOTIFIED. [facility] INPATIENT [facility] TO CONTACT MED 2 NURSE WITH ROOM NUMBER WHEN READY TO ACCEPT PT AND NURSE REPORT. Martin Haney, AGUSTINA MANAGEMENT DCP- Discharge Planning Updated by [id number]: Martin Haney on 11/07/18 12:[address] Patient Name: SUNDAR MCDONALD Encounter No: [id number] : 1940 Primary Insurance: MEDICARE A & B Anticipated DC Date: 11-08-2018 Planned Disposition: Inpatient Rehab External Planned Provider: [facility] INPATIENT RE[facility] DCP follow-up note: CM SPOKE TO JUDE MILES WHO ASKED IF REHAB WILL ACCEPT PT TODAY. CM SPOKE TO EBEN OF INPATIENT REHAB, THEY PLAN TO ACCEPT PT TOMORROW,11-08-18 FOR REHAB THEY HAVE 4 ADMITS TODAY ALREADY. PT NOTIFIED, IN AGREEMENT WITH DISCHARGE TO INPATIENT REHAB. CM NOTIFIED JUDE MILES. [facility] INPATIENT REH[facility] TO CONTACT MED 2 NURSE WITH ROOM NUMBER WHEN READY TO ACCEPT PT AND NURSE REPORT. Martin Haney, CASE MANAGEMENT DCP- Discharge Planning Updated by [id number]: Martin Haney on 11/06/18 3:[address] Patient Name: SUNDAR MCDONALD Admission Status: Urgent Accout number: [id number] Admission Date: 11-01-2018 : 1940 Admission Diagnosis:PNEUMONIA, UNSPECIFIED ORGANISM Attending: ERA LICONA Current LOS: 5 Anticipated DC Date: Planned Disposition: Inpatient Rehab Primary Insurance: MEDICARE A & B PLANNED EXTERNAL PROVIDER: [facility] INPATIENT REH[facility] Discharge Planning Comments: CM RECEIVED INPATIENT REHAB PRESCREENING ORDER, MET WITH PT IN ROOM TO DISCUSS DISCHARGE PLANNING AND NEEDS. PT REPORTS LIVING AT HOME INDEPENDENTLY AND ALONE. . PT HAS CPCP, TUB BENCH AND WALKER WITH WHEELS SEAT AND BRAKES FROM [employer]. PT HAS NO OUTSIDE SERVICES ASSISTING IN THE HOME. CM DISCUSSED AVAILABILITY OF HOME HEALTH, REHAB SERVICES AND MEDICAL EQUIPMENT. PT WOULD LIKE REFERRAL TO INPATIENT REHAB AT [place]. PT REPORTS HER SON WILL PICK HER UP FOR DISCHARGE HOME AFTER REHAB. IMPORTANT MESSAGE FROM MEDICARE PROVIDED AND EXPLAINED. CM WAITING INPATIENT REHAB PRESCREENING AND ADMISSION DETERMINATION FROM [facility] INPAT[facility]. Manager School: Martin Haney DCPIA - Discharge Planning Initial Assessment Updated by [id number]: Martin Haney on 11/06/18 4:33 pm * Is the patient Alert and Oriented? Yes * How many steps to enter\exit or inside your home? * PCP DR. GANDARA * Pharmacy [facility] * Preadmission Environment Home Alone * ADLs Independent * Equipment CPAP Rolling Walker Tub Bench * Other Equipment WALKER HAS WHEELS, SEAT AND BRAKES [employer] - [employer] EQUIPMENT PROVIDER * List name and contact numbers for known caregivers / representatives who currently or will assist patient after discharge: DEMETRIA LOUIE, SON, DONTE LOUIE, SON, OK TO TALK TO GRACY WYATT DTR, * Verbal permission to speak to the caregivers and representatives has been obtained from the patient. Yes * Community resources currently utilized None * Please name any agencies selected above. NONE * Additional services required to return to the preadmission environment? Yes * Can the patient safely return to the preadmission environment? Yes * Has this patient been hospitalized within the prior 30 days at any hospital? No Coverage Notice Reviewer: [id number] Dhaval Haney Notice Issued Date-Time: 11/06/2018 10:25 Notice Type: IM Discharge Notice Notice Delivered To: Patient Relationship to Patient: Clinical Psychologist Private Practice Name: Delivery Method: HAND - Hand Delivered Manuela Days: Prior Verbal Notification: Recipient Understood Notice: Yes Recipient Signature: Yes Med Rec Note Co-signed by Attending: Coverage Notice Comment: Last DP export: 11/07/18 12:54 p Patient Name: SUNDAR MCDONALD Page [id number] at 1249 All edits/amendments must be made on the electronic document DICTATION DATE: 11/08/181247 SALES SERVICE ROUTE MANAGER: CRISTOPHER 11/08/18 1248 RPT#: [id number] DC DATE: STATUS: ADM IN [facility] [address] [place] [address] END OF REPORT
[2018-11-08] MEDS ORDERED: LEVOFLOXACIN500 MG PO (13:28)
--- NOTE | 2018-11-08 14:18 | NUR ---
PATIENT BEING DC TO INPATIENT REHAB. PATIENT IS STABLE AND VSS. PATIENT DENIES ANY PAIN OR NEEDS. PATIENT TRANSPORTED VIA AND HOSPITAL PERSONNEL.
== END 2018-11-08 14:22 | DRG 308 ==
LOC: D.M2 17:02
PROVIDERS: Emergency Medicine; Family Medicine; ADMIT Internal Medicine Nephrology; ATTEND Internal Medicine Nephrology
DX: I48.92 Unspecified atrial flutter (principal); J11.00 Influenza due to unidentified influenza virus with unspecified type of pneumonia; I31.3 Pericardial effusion (noninflammatory); N17.9 Acute kidney failure, unspecified; E66.01 Morbid (severe) obesity due to excess calories; E11.40 Type 2 diabetes mellitus with diabetic neuropathy, unspecified; I10 Essential (primary) hypertension; E55.9 Vitamin D deficiency, unspecified; E78.5 Hyperlipidemia, unspecified; R91.1 Solitary pulmonary nodule; I48.0 Paroxysmal atrial fibrillation; Z86.73 Personal history of transient ischemic attack (TIA), and cerebral infarction without residual deficits; G72.89 Other specified myopathies

== ENCOUNTER 2018-11-08 13:56 | Inpatient (IN) | payer MEDICARE, BC ==
[~2018-11-08] VITALS: Ht 168.9 cm; Wt 136.5 kg
[~2018-11-08 13:56] MED LIST changes: +LEVOFLOXACIN500 MG PO; +PIOGLITAZONE15 MG PO; +RYTHMOL 225 MG225 MG PO
--- NOTE | 2018-11-08 14:48 | NUR ---
PATIENT ADMITTED TO REHAB FROM ACUTE FLOOR. HER PCP IS DR. GANDARA. DME AT HOME IS A C-PAP, TUB BENCH AND A ROLLATOR WALKER. DISCHARGE PLANS ARE FOR PATIENT TO RETURN HOME. WILL CONTINUE TO FOLLOW WITH PATIENT.
[2018-11-08 16:02] VITALS: BP 135/52; BMI 47.9
--- NOTE | 2018-11-08 17:00 | NUR ---
GLUCOSE LEVEL 185. TWO UNITS OF SLIDING SCALE INS GIVEN
[2018-11-08 19:00] VITALS: BP 145/65
--- NOTE | 2018-11-08 19:12 | NUR ---
PATIENT IS RESTING IN HER BED. SHE DENIES ANY NEEDS. BED IS DOWN LOW WITH SIDE RAILS UP X2. CL IS IN REACH.
--- NOTE | 2018-11-09 | NUR ---
PATIENT IS SLEEPING. BED IS DOWN LOW WITH SIDE RAILS UP X2. CL IN REACH.
--- NOTE | 2018-11-09 04:00 | NUR ---
PATIENT IS SLEEPING. BED IS DOWN LOW WITH SIDE RAILS UP X2 AND CALL LIGHT IS IN REACH.
[2018-11-09 07:30] VITALS: BP 136/58
--- NOTE | 2018-11-09 08:00 | NUR ---
PATIENT IS ALERT/ORIENT. CALL LIGHT WITHIN REACH. VOICES NO NEEDS AT THIS TIME. WILL CONTINUE WITH PLAIN OF CARE
[2018-11-09 10:40] VITALS: Ht 168.9 cm; Wt 136.5 kg
--- NOTE | 2018-11-09 11:20 | NUR ---
DR Kiet PENA INTO SEE PATIENT. NEW ORDERS RECEIVED
--- NOTE | 2018-11-09 13:56 | NUR ---
RESTING QUIETLY.CL IN REACH.
--- NOTE | 2018-11-09 18:55 | NUR ---
PATIENT IS RESTING IN HER BED WITH EYES CLOSED. BED IS DOWN LOW. CL IS IN REACH.
[2018-11-09 21:06] VITALS: BP 133/60
--- NOTE | 2018-11-10 | NUR ---
PATIENT IS SLEEPING. CL IN REACH.
--- NOTE | 2018-11-10 04:00 | NUR ---
PATIENT IS SLEEPING. BED IS DOWN LOW WITH SIDE RAILS UP X2. CL IN REACH.
--- NOTE | 2018-11-10 10:35 | NUR ---
PATIENT ALERT AND ORIENTED THIS MORNING. ASSISTED TO BATHROOM VIA WHEELCHAIR. ATE ONLY A FEW BITES OF BREAKFAST DUE TO NAUSEA. OFFERED ZOFRAN BUT REFUSED AT THIS TIME. REFUSED TO TAKE MORNING MEDICATION STATEING THAT SHE THINKS THEY WILL MAKE HER THROW UP. WILL TRY AND TAKE LATER. DID TAKE PRN TYLENOL FOR BACK PAIN. RESTING IN BED AT THIS TIME. CALL LIGHT WITHIN REACH. WILL CONTINUE TO MONITOR.
--- NOTE | 2018-11-10 15:21 | NUR ---
PATIENT IN BED ALL DAY EXCEPT TO GET UP TO GO TO THE BATHROOM. STATES SHE DOES NOT FEEL WELL TODAY. DID NOT EAT LUNCH TODAY. STOMACH IS UPSET BUT NOT READY TO TAKE ZOFRAN YET. WILL CONTINUE TO OFFER IT TO HER. RESTING QUIETLY AT THIS TIME. CALL LIGHT WITHIN REACH. WILL CONTINUE TO MONITOR.
--- NOTE | 2018-11-10 18:39 | NUR ---
PATIENT DRY HEAVING BUT NO EMESIS. AGREED TO TAKE ZOFRAN. ZOFRAN 4 MG WAS GIVEN.
--- NOTE | 2018-11-10 18:58 | NUR ---
PATIENT IS RESTING IN HER BED AND TALKING ON THE PHONE. SHE DENIES ANY NEEDS. BED IS DOWN LOW AND CL IS IN REACH.
--- NOTE | 2018-11-10 19:05 | NUR ---
PATIENT IS RESTING IN HER BED. STATES SHE IS "OKAY" BUT SHE HAS BEEN NAUSEATED AND NOT FEELING WELL TODAY. BED IS DOWN LOW WITH SIDE RAILS UP X2. CALL LIGHT IS IN REACH.
[2018-11-10 20:08] VITALS: BP 134/59
--- NOTE | 2018-11-11 | NUR ---
PATIENT IS SLEEPING. BED IS DOWN LOW. CALL LIGHT IN REACH.
--- NOTE | 2018-11-11 04:00 | NUR ---
PATIENT SLEEPING. CALL LIGHT IN REACH.
[2018-11-11 08:17] VITALS: BP 123/59
--- NOTE | 2018-11-11 11:53 | NUR ---
PATIENT ALERT AND ORIENTED THIS MONRING. STILL COMPLAINING OF NAUSEA. ATE ONLY 5% OF BRAEKFAST. DR. PENA IN TO SEE PATIENT THIS MORNING. ORDERED NEW MEDICATION FOR NAUSEA AND APPITITE. PATIENT GOT UP FOR THERAPY TODAY AND TOLERATED WELL. RESTUBG QUIETLY AT THIS TIME. CALL LIGHT WTIHIN REACH. WILL CONTINUE TO MONITOR.
[2018-11-11 12:52] LABS: ANION GAP 13.3 mmol/L (8-16); CALCIUM 7.7 mg/dL (8.5-10.1); CARBON DIOXIDE 28.2 mmol/L (21.0-32.0); CREATININE - SERUM 1.4 mg/dL (0.6-1.3); POTASSIUM - SERUM 4.5 mmol/L (3.5-5.1)
[2018-11-11 13:03] LABS: BASOPHILS 0.2 % (0-2); EOSINOPHILS 0.8 % (0-7); HEMATOCRIT 31.4 % (36.0-48.0); HEMOGLOBIN 9.2 g/dL (12-16); IMMATURE GRANULOCYTES 1.9 % (0-5); LYMPHOCYTES 12.7 % (15-50); MCH 23.8 pg (26.0-34.0); MCHC 29.3 g/dL (31.0-37.0); MCV 81.3 fL (80.0-100.0); MEAN PLATELET VOLUME 9.4 fL (7.4-10.4); MONOCYTES 13.5 % (2-11); NEUTROPHILS 70.9 % (40-80); PLATELET COUNT 321 10x3/uL (130-400); RBC 3.86 10x6/uL (4.00-5.40); RDW 16.4 % (11.5-14.5); WBC 6.5 10x3/uL (4.8-10.8)
[2018-11-11 19:00] VITALS: BP 94/43
--- NOTE | 2018-11-11 19:19 | NUR ---
AWAKE AND ALERT. RESPIRATIONS MILDLY LABORED. O2/4L ON PER NASAL CANNULA. STATES SHE ISNT IN PAIN BUT JUST DOESNT FEEL GOOD. FAMILY AT BEDSIDE. CALL LIGHT IN REACH.
--- NOTE | 2018-11-11 23:24 | NUR ---
C/O FEELING DIZZY. O2 SATURATION IN THE 50'S. CPAP TUBING NOT HOOKED UP. REPSIRATORY THERAPY NOTIFED AND ASSESSED PATIENT. HIGH FLOW O2 PLACED ON PER NASAL CANNULA AND O2 SATURATION RAISED TO 90. WILL CONTINUE TO MONITOR. STATES DIZZINESS HAS DECREASED SINCE O2 SAT INCREASED.
--- NOTE | 2018-11-12 00:50 | NUR ---
RESTING WITH EYES CLOSED. O2 SATURATION 97% ON O2/6L PER HIGH FLOW CANNULA. NO ACUTE DISTRESS NOTED.
--- NOTE | 2018-11-12 05:23 | NUR ---
O2 SATURATION BACK IN THE 60'S. RESPIRATORY THERAPY NOTIFED. O2 INCREASED TO 8L PER HIGH FLOW. O2 SATURATION INCREASED TO 90%. WILL MONITOR. PLACED ON MD ROUNDING SHEET.
[2018-11-12 08:00] VITALS: BP 101/41
--- NOTE | 2018-11-12 08:00 | NUR ---
PT RESTING IN BED WITH EYES OPEN PT 02 SAT 92 ON 8 LITERS AVEL FLOW NASAL CANULA PT STATES SHE JUST DOES NOT FEEL GOOD AT ALL WILL MONITER
--- NOTE | 2018-11-12 09:00 | NUR ---
OT IN ROOM GOT PT UP TO BATHROOM SAT DROPPED TO 72 PT LAYED BACK DOWN CONSULTED DR LOMELI PER DR PENA
--- NOTE | 2018-11-12 09:45 | NUR ---
DR LOMELI RETURNED PAGE AND ORDERED THAT THE PT NEEDED TO BE ADMITED BACK TO ACUTE CARE FOR TREATMENT WILL DO ORDERED
--- NOTE | 2018-11-12 09:55 | NUR ---
DUE TO CHANGE IN RESPIRATORY CONDTION PATIENT DISCHARGED FROM [facility] AND ADMITTED TO ACUTE FLOOR.
[2018-11-12] MEDS ORDERED: ZOFRAN4 MG PO (10:55)
[2018-11-12] MEDS ORDERED: MARINOL5 MG PO (10:56)
--- NOTE | 2018-11-12 11:44 | NUR ---
PT DISCHARGED TO ACUTE CARE VIA BED 02 AT 8 LITERS PT TOLERATED WELL
== END 2018-11-12 11:54 | disposition short-term general hospital (02) | DRG 92 ==
LOC: D.REHAB 13:56
PROVIDERS: ADMIT Emergency Medicine; ATTEND Emergency Medicine
DX: G72.89 Other specified myopathies (principal); J90 Pleural effusion, not elsewhere classified; N17.9 Acute kidney failure, unspecified; E66.9 Obesity, unspecified; E11.65 Type 2 diabetes mellitus with hyperglycemia; E87.6 Hypokalemia; E83.42 Hypomagnesemia; D64.9 Anemia, unspecified; I10 Essential (primary) hypertension; E78.5 Hyperlipidemia, unspecified; I48.91 Unspecified atrial fibrillation; G47.33 Obstructive sleep apnea (adult) (pediatric)

== ENCOUNTER 2018-11-22 15:58 | Inpatient (IN) | payer MEDICARE, BC ==
[~2018-11-22] VITALS: Ht 168.9 cm; Wt 127.0 kg
[~2018-11-22 15:58] MED LIST changes: +HUMULIN R100 U/ML SC; +IPRAT-ALBUT 0.5-3 ML UPD; +MARINOL5 MG PO; +MAXIPIME 2 GM/D52 G1 IV; +MEGACE400 MG/10 PO; +ZOFRAN4 MG PO
[2018-11-22 18:17] VITALS: BP 92/56; BMI 44.6
--- NOTE | 2018-11-22 19:00 | NUR ---
PATIENT IS SLEEPING. BED IS DOWN LOW WITH SIDE RAILS UP X2. CALL LIGHT IN REACH.
[2018-11-22 19:15] VITALS: BP 148/72
--- NOTE | 2018-11-22 21:08 | NUR ---
PATIENT IS RESTING IN HER BED. HER BED IS DOWN LOW WITH SIDE RAILS UP X2 AND CALL LIGHT IS IN REACH.
--- NOTE | 2018-11-23 | NUR ---
PATIENT IS SLEEPING AND WEARING HER CPAP MACHINE. BED IS DOWN LOW WITH SIDE RAILS UP X2. CALL LIGHT IN REACH.
--- NOTE | 2018-11-23 03:30 | NUR ---
PATIENT HAD IV ANTIBIOTIC SCHEDULED FOR 2300 LAST NIGHT. NURSING STAFF UNABLE TO START AN IV. MULTIPLE STICKS BY MULTIPLE NURSES. WILL NOTIFY MD WE ARE UNABLE TO START AN IV.
--- NOTE | 2018-11-23 04:00 | NUR ---
PATIENT IS SLEEPING. NO SIGNS OF DISTRESS. BED IS DOWN LOW WITH SIDE RAILS UP X2 AND CL IN REACH.
[2018-11-23 06:07] LABS: BASOPHILS 0 % (0-2); EOSINOPHILS 1.9 % (0-7); HEMATOCRIT 29.6 % (36.0-48.0); HEMOGLOBIN 9.2 g/dL (12-16); IMMATURE GRANULOCYTES 1.9 % (0-5); LYMPHOCYTES 13.2 % (15-50); MCH 24.1 pg (26.0-34.0); MCHC 31.1 g/dL (31.0-37.0); MCV 77.7 fL (80.0-100.0); MEAN PLATELET VOLUME 9.9 fL (7.4-10.4); MONOCYTES 19.9 % (2-11); NEUTROPHILS 63.1 % (40-80); PLATELET COUNT 204 10x3/uL (130-400); RBC 3.81 10x6/uL (4.00-5.40); RDW 17.9 % (11.5-14.5); WBC 7.5 10x3/uL (4.8-10.8)
[2018-11-23 06:33] LABS: CREATININE - SERUM 1.3 mg/dL (0.6-1.3)
[2018-11-23 06:34] LABS: ANION GAP 6.5 mmol/L (8-16); CARBON DIOXIDE 40.4 mmol/L (21.0-32.0); POTASSIUM - SERUM 2.9 mmol/L (3.5-5.1)
--- NOTE | 2018-11-23 07:53 | NUR ---
ALERT AND ORIENTED. SHOWER PER OT THIS AM. NO C/O PAIN.
[2018-11-23 08:38] VITALS: BP 157/84
[2018-11-23 10:51] VITALS: Ht 168.9 cm; Wt 127.0 kg
--- NOTE | 2018-11-23 11:02 | NUR ---
PARTICIPATING IN THERAPY AT THIS TIME.
--- NOTE | 2018-11-23 17:09 | NUR ---
NO CHANGE IN ASSESSMENT. RESTING WO DISTRESS. CL IN REACH.
--- NOTE | 2018-11-23 18:55 | NUR ---
PATIENT IS SITTING UP IN HER WHEELCHAIR. SHE REQUESTS ASSISTANCE GETTING INTO BED. NO OTHER NEEDS VERBALIZED. BED IS DOWN LOW WITH SIDE RAILS UP X2 AND CALL LIGHT IS IN REACH.
[2018-11-23 20:35] VITALS: BP 125/56
--- NOTE | 2018-11-24 | NUR ---
PATIENT IS SLEEPING. BED IS DOWN LOW WITH SIDE RAILS UP X2. PATIENT USES CALL LIGHT FOR NEEDS. CALL LIGHT IN REACH.
--- NOTE | 2018-11-24 04:00 | NUR ---
PATIENT IS SLEEPING. BED IS DOWN LOW. CL IN REACH.
[2018-11-24 07:14] LABS: BASOPHILS 0.1 % (0-2); EOSINOPHILS 2.3 % (0-7); HEMATOCRIT 29.5 % (36.0-48.0); HEMOGLOBIN 9.2 g/dL (12-16); IMMATURE GRANULOCYTES 1.8 % (0-5); LYMPHOCYTES 14.3 % (15-50); MCHC 31.2 g/dL (31.0-37.0); MEAN PLATELET VOLUME 10.4 fL (7.4-10.4); MONOCYTES 19.5 % (2-11); PLATELET COUNT 196 10x3/uL (130-400); RBC 3.83 10x6/uL (4.00-5.40); RDW 17.9 % (11.5-14.5); WBC 7.3 10x3/uL (4.8-10.8)
[2018-11-24 08:22] LABS: ANION GAP 11.6 mmol/L (8-16); CALCIUM 7.8 mg/dL (8.5-10.1); CARBON DIOXIDE 34.3 mmol/L (21.0-32.0); CREATININE - SERUM 1.3 mg/dL (0.6-1.3)
[2018-11-24 08:24] LABS: POTASSIUM - SERUM 3.9 mmol/L (3.5-5.1)
--- NOTE | 2018-11-24 08:32 | NUR ---
PT AM MEDS ADMINISTERED. PT DENIES NEEDS. WCTM.
--- NOTE | 2018-11-24 11:24 | NUR ---
PT WAS SCANNED BY SURJIT AT 941 TX WAS GIVEN BY GUMARO AT 1124
--- NOTE | 2018-11-24 17:26 | NUR ---
PT EATING DINNER, DENIES NEEDS. WCTM.
[2018-11-24 19:09] VITALS: BP 137/61
--- NOTE | 2018-11-24 19:09 | NUR ---
PATIENT IS RESTING IN HER BED. SHE APPEARS TO BE SLEEPING. NO SIGNS OF DISTRESS. BED IS DOWN LOW WITH SIDE RAILS UP X2. CALL LIGHT IS IN REACH.
--- NOTE | 2018-11-25 00:05 | NUR ---
PATIENT ASSISTED TO THE BATHROOM AND BACK. NO OTHER NEEDS AT THIS TIME.
--- NOTE | 2018-11-25 04:00 | NUR ---
PATIENT IS SLEEPING. BED IS DOWN LOW AND CL IS IN REACH.
[2018-11-25 08:00] VITALS: BP 129/57; BP 156/66
--- NOTE | 2018-11-25 09:15 | NUR ---
PATIENT IS ALERT/ORIENT. SITTING UP IN WHEELCHAIR AT BEDSIDE TO EAT BREAKFAST. CALL LIGHT WITHIN REACH. VOICES NO NEEDS AT THIS TIME. DR. Kiet PENA INTO SEE PATIENT. WILL CONTINUE WITH PLAN OF CARE
--- NOTE | 2018-11-25 09:58 | RHP ---
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 The patient was on her acute rehab unit from 11/08/2018 to 11/12/2018 and began having respiratory distress and pulse ox was low. She was in the hospital for shortness of breath and cough and was found to have a pericardial effusion without evidence of tamponade. She had a cardioversion in 10/2018 and presented to acute hospital initially as a direct admit from her PCP's office on 11/01/2018 with complaints of fever, generalized pain, shortness of breath. She was evaluated and followed by cardiology, pulmonary, and nephrology during her stay. She did require 4-1/2 to 5 liters high flow O2, but is progressively benefiting from therapy and getting less dependence on O2. She greatly benefit from being in acute inpatient rehab for titrating her oxygen requirements. She has got a past medical history of diabetes, morbid obesity, cardiac arrhythmia. She has had ablation in the past, TIAs, hyperlipidemia, diabetic neuropathy, paroxysmal atrial fib, hypertension, CVA, glaucoma, arthritis. She wears a BiPAP at home. She has got a history of a cholecystectomy and colonoscopy and a skin graft to her ankle. She is requiring supplemental O2 was on no home O2 at home. She has been getting IV antibiotic therapy, IV Lasix; dyspnea on exertion, shortness of breath, deconditioning, debility, proximal muscle weakness, impaired mobility. She is a high risk for falls. These are all barriers to discharge at this time. She lives alone, was moderately independent with her mobility and was independent to moderately independent with her ADLs, currently set up for mod assist for ADLs and mod assist to max assist for mobility. She plans to return home as close to her prior level of functioning as possible, hopefully. COMORBIDITIES: In this patient includes type 2 diabetes with hyperglycemia, morbid obesity, pleural effusion, dysphagia, leukocytosis, recent AFib, anemia, hyperlipidemia, vitamin D deficiency, hypokalemia, acute kidney injury, normocytic anemia, hypertension, hyperlipidemia, diabetes, atrial fib, CVA, obstructive sleep apnea, pneumonia, shortness of breath, dyspnea on exertion, renal insufficiency, deconditioning and definitely impaired mobility. PAST MEDICAL HISTORY: Significant for diabetes with neuropathy, morbid obesity, cardiac arrhythmia, TIAs, hyperlipidemia, paroxysmal atrial fib, hypertension, CVA, glaucoma, arthritis, menopause. PAST SURGICAL HISTORY: Includes cholecystectomy, colonoscopy, and skin graft. ALLERGIES: CODEINE, CLAVULANIC ACID, AMOXICILLIN, AND SIMVASTATIN. CURRENT MEDICATIONS: Include sotalol or Betapace 160 mg b.i.d.; she is on Actos 15 mg daily; Januvia 100 mg daily; Xarelto 20 mg daily; Protonix 40 mg daily; on Megace 400 b.i.d.; B12 1000 mcg daily; vitamin D 400 units daily; she is on calcium carbonate 500 mg daily; aspirin 325 mg daily; amlodipine 10 mg daily; HISTORY AND PHYSICAL [id number] SUNDAR MCDONALD updrafts 3 cc q.i.d. p.r.n.; Rythmol 225 b.i.d.; Zofran 4 mg every 4 hours p.r.n.; metoprolol 25 mg b.i.d.; on a low-resistant sliding scale with insulin; she is on Lantus 38 units at bedtime; she is on Maxipime, she is supposed to get a total of 10 dosages of this or 5 more days' worth; she is on acetaminophen 500 mg every 6 hours p.r.n. and MiraLax 17 g in 8 ounces of water daily. HABITS: No alcohol or tobacco use. FAMILY HISTORY: Noncontributory. SOCIAL HISTORY: The patient hopes to return back home and get back to her prior level of functioning. REVIEW OF SYSTEMS: GENERAL: Does complain of some weakness or fatigue. HEENT: Denies cold, cough, or congestion. CARDIOVASCULAR: Denies any chest pain at this time. LUNGS: Does complain of shortness of breath especially with exertion. PHYSICAL EXAMINATION: VITAL SIGNS: Stable. She is afebrile. Generally a morbidly obese female, in no distress, alert upon exam. HEENT: Normocephalic and atraumatic. Mucosa moist. NECK: Supple. No lymphadenopathy. LUNGS: Clear in upper palomares with decreased breath sounds in the bases. HEART: Regular rate and rhythm. At this time, she does have episodes of paroxysmal atrial fibrillation. ABDOMEN: Benign. EXTREMITIES: No clubbing, cyanosis or edema. NEUROLOGIC: She does have noted weakness. LABORATORY DATA: White count is 7.5, H&H of 9.2 and 29.6 and platelet count is 204. Sodium 146, potassium is 2.9, BUN and creatinine of 18 and 1.3 and blood sugar is noted to be 97. ASSESSMENT: This is a 78-year-old female patient admitted to rehab with a working diagnosis of disuse myopathy secondary to a prolonged hospital stay. The patient has potential to make improvement. We instituted the following multidisciplinary therapies include, but not limited to physical, occupational, respiratory, speech, nutritional services, prosthetics and orthotics. Given her complex medical conditions and risks for more complications, rehabilitation services cannot be provided at a low level of care such as skilled nurse facility. PLAN: 1. Admit to [facility] for intensive inpatient therapy to include the following disciplines: A. Physical therapy to improve gait, all transfer skills and bed mobility to a modified independent level. B. Occupational therapy to a modified independent level. C. Case management to assist with discharge planning and placement options. D. Nutrition to assist with nutritional needs. E. Rehabilitation nursing to assist in monitoring the patient's underlying medical conditions and to assist with any type of bowel or bladder management. HISTORY AND PHYSICAL [id number] MCDONALDSUNDAR L 2. The patient's current medication and medical care will be continued. 3. The patient will be placed on standard fall precautions. 4. I am going to go ahead and replace her potassium. 5. I am going to switch antibiotics on her secondary to the lack of being able to get at line on her at this time and we will continue therapy with this. 6. I will follow up in the a.m. TRANSINT:[id number] Voice Confirmation ID: [id number] DOCUMENT ID: [id number] MARGARET notes whether there has been none or any medical/functional change since admission: - No change since prescreen. MARGARET attests patient continues to be appropriate for IRF: - Continues to be appropriate. TIGRE PENA MD at 0971 CC: [id number] DICTATION DATE: 11/23/18 1316 BRIDGE MECHANIC: 11/23/18 1534 ADM IN [facility] [address] [id number]
--- NOTE | 2018-11-25 10:45 | NUR ---
PATIENT IN REHAB ROOM. WORKING WITH PHYSICAL THERAPIST. DENIES ANY PAIN/DISC AT THIS TIME.
--- NOTE | 2018-11-25 13:40 | NUR ---
PATIENT ADMITTED TO REHAB FROM ACUTE FLOOR. DR. GANDARA IS PATIENT PCP. DME AT HOME IS A C-PAP, WALKER AND A TUB BENCH FROM [facility]. DISCHARGE PLANS ARE FOR PATIENT TO RETURN HOME WITH FAMILY. WILL CONTINUE TO FOLLOW WITH PATIENT AND WILL ASSIT WITH NEEDS.
--- NOTE | 2018-11-25 15:14 | NUR ---
PATIENT HELPED INTO BATHROOM. MIN ASST FROM WHEELCHAIR ONTO TOILET. NEEDS HELP WITH [facility] AND PULLING UP PANTS
[2018-11-25 19:00] VITALS: BP 152/59
--- NOTE | 2018-11-25 19:08 | NUR ---
PT IN BED WATCHING TV, GETTING VITALS TAKEN, NOIMMEDIATE NEEDS NOTED, FLUIDS AND CALL LIGHT WITHIN REACH
--- NOTE | 2018-11-25 23:34 | NUR ---
PT IN BED EYES CLOSED, BED LOW, AROUSES TO VOICE, FLUIDS AND CALL LIGHT WITHIN REACH, NO NEEDS NOTED
--- NOTE | 2018-11-26 07:33 | NUR ---
ALERT AND ORIENTED. NO DISTRESS NOTED. CL IN REACH.
[2018-11-26 08:00] VITALS: BP 151/48
[2018-11-26 08:46] LABS: HEMATOCRIT 29.5 % (36.0-48.0); HEMOGLOBIN 8.8 g/dL (12-16); MCH 23.8 pg (26.0-34.0); MCHC 29.8 g/dL (31.0-37.0); MCV 79.9 fL (80.0-100.0); MEAN PLATELET VOLUME 10.3 fL (7.4-10.4); RBC 3.69 10x6/uL (4.00-5.40); RDW 18.9 % (11.5-14.5); WBC 6.3 10x3/uL (4.8-10.8)
[2018-11-26 08:48] LABS: PLATELET COUNT 154 10x3/uL (130-400)
[2018-11-26 08:59] LABS: CALCIUM 7.8 mg/dL (8.5-10.1); CARBON DIOXIDE 31.8 mmol/L (21.0-32.0); CREATININE - SERUM 1.3 mg/dL (0.6-1.3); POTASSIUM - SERUM 3.8 mmol/L (3.5-5.1)
[2018-11-26 10:25] LABS: EOSINOPHILS 1 % (0-7); LYMPHOCYTES 23 % (15-50); MONOCYTES 5 % (2-11); NEUTROPHILS 71 % (40-80); PLATELET ESTIMATE NORMAL
--- NOTE | 2018-11-26 13:11 | NUR ---
RESTING QUIETLY IN BED AT THIS TIME. NO C/O PAIN. CL IN REACH. BED ALARM ON.
--- NOTE | 2018-11-26 13:12 | NUR ---
Nutrition Follow Up: Pt stated that her appetite is improving. She said that her nausea has improved. RD encouraged pt to increase po intake as able and to make staff aware of any food preferences. Diet: ADA PO Intake: 60% meal avg BM: 11/25/18 Labs reviewed Meds noted including Megace Rec continue current diet. RD following.
--- NOTE | 2018-11-26 16:41 | NUR ---
NO CHANGE IN ASSESSMENT. RESTING WO C/O PAIN OR DISTRESS. CL IN REACH.
[2018-11-26 19:00] VITALS: BP 139/61
--- NOTE | 2018-11-26 19:14 | NUR ---
AWAKE AND ALERT. RESPIRATIONS [id number]. NO DISTRESS NOTED. 02.5/2L ON PER NASAL CANNULA. DENIES PAIN. NO ACUTE DISTRESS NOTED. CALL LIGHT IN REACH.
--- NOTE | 2018-11-27 01:31 | NUR ---
RESTING IN BED WITH EYES CLOSED. RESPIRATIONS UNLABORED. NO DISTRESS NOTED. CALL LIGHT IN REACH.
--- NOTE | 2018-11-27 06:17 | NUR ---
QUIET HOURS. BLOOD SUGAR 76. SKIN WARM AND DRY, ALERT AND ORIENTED. ORANGE JUICE GIVEN PO. NO ACUTE DISTRESS NOTED.
--- NOTE | 2018-11-27 07:51 | NUR ---
ALERT AND ORIENTED. EATING BREAKFAST. NO C/O PAIN. CL IN REACH.
--- NOTE | 2018-11-27 13:01 | NUR ---
SITTING IN WC. NO C/O PAIN. VISITOR AT .
--- NOTE | 2018-11-27 13:03 | NUR ---
SHOWER TODAY PER OT.
[2018-11-27 13:20] VITALS: BP 147/57
--- NOTE | 2018-11-27 16:45 | NUR ---
RESTING WO DISTRESS. NO CHANGE IN ASSESSMENT. CL IN REACH. RESP EVEN AND UNLABORED.
[2018-11-27 19:00] VITALS: BP 139/66
--- NOTE | 2018-11-27 19:34 | NUR ---
PT IN BED, LOW POSITION, EYES OPEN, CLEARED PTS EVENING TRAY ATE 75%, NO OTHER IMMEDIATE NEEDS NOTED, FLUIDS AND CALL LIGHT WITHIN REACH
--- NOTE | 2018-11-28 01:20 | NUR ---
PT IN BED, LOW POSITION, EYES CLOSED, AROUSES EASILY TO VOICE, FLUIDS AND CALL LIGHT WITHIN REACH, NO IMMEDIATE NEEDS NOTED
[2018-11-28 08:00] VITALS: BP 162/70
--- NOTE | 2018-11-28 08:00 | NUR ---
PATIENT IS ALERT/ORIENT. CALL LIGHT WITHIN REACH. VOICES NO NEEDS. WILL CONTINUE WITH PLAN OF CARE
--- NOTE | 2018-11-28 08:30 | NUR ---
DR Kiet PENA INTO SEE PATIENT. NEW ORDERS FOR CHEST X-RAY
--- NOTE | 2018-11-28 10:03 | NUR ---
PATIENT IN REHAB ROOM. WORKING WITH PHYSICAL THERAPIST. DENIES ANY PAIN/DISC AT THIS TIME.
--- NOTE | 2018-11-28 12:15 | NUR ---
GLUCOSE LEVEL 154. TWO UNITS OF SLIDING SCALE INSULIN GIVEN PER ORDER
[2018-11-28 19:00] VITALS: BP 91/74
--- NOTE | 2018-11-28 19:47 | NUR ---
THE PATIENT WAS LYING IN BED WHEN STAFF ENTERED HER ROOM. BED IS IN THE LOW POSITION WITH SIDERAILS X2 AND CALL LIGHT WITHIN REACH. THE PATIENT WAS EDUCATED ON AND DEMONSTRATED USE OF A CALL LIGHT. THE PATIENT APPEARS COMFORTABLE WITH NO QUESTIONS OR COCNERNS AT THIS TIME.
--- NOTE | 2018-11-29 03:42 | NUR ---
THE PATIENT IS AWAKE AND WATCHING TELEVISION. SHE APPEARS COMFORTABLE AND HAS NO QUESTIONS OR CONCERNS AT THIS TIME.
[2018-11-29 06:32] LABS: ANION GAP 9.7 mmol/L (8-16); CALCIUM 7.5 mg/dL (8.5-10.1); CARBON DIOXIDE 28.6 mmol/L (21.0-32.0); CREATININE - SERUM 1.4 mg/dL (0.6-1.3); POTASSIUM - SERUM 4.3 mmol/L (3.5-5.1)
[2018-11-29 07:02] LABS: HEMATOCRIT 28.9 % (36.0-48.0); HEMOGLOBIN 9.1 g/dL (12-16); LYMPHOCYTES 17.6 % (15-50); MCH 25.1 pg (26.0-34.0); MCHC 31.5 g/dL (31.0-37.0); MCV 79.8 fL (80.0-100.0); NEUTROPHILS 62.4 % (40-80); RBC 3.62 10x6/uL (4.00-5.40); RDW 19.6 % (11.5-14.5); WBC 6.2 10x3/uL (4.8-10.8)
[2018-11-29 07:03] LABS: PLATELET COUNT 230 10x3/uL (130-400)
[2018-11-29 08:00] VITALS: BP 146/51
--- NOTE | 2018-11-29 08:00 | NUR ---
PT RESTING IN BED WITH EYES OPEN CALL LIGHT IN REACH WILL MONITER
--- NOTE | 2018-11-29 09:05 | NUR ---
PATIENT DISCHARGING HOME TODAY WITH FAMILY. [facility] WILL PROVIDE THERAPY. NO NEW DME NEEDED AT THIS TIME. DR. GANDARA 12/05/18 @ 11:30, DR. LOMELI 12/30/18 @ 4:00. PATIENT CHOICE FORM AND IMFM FORMS SIGNED, COPY GIVEN TO PATIENT AND FILED IN CHART.DISCHARGE INSTRUCTIONS WITH [facility] DATA FAXED TO PCP AND TO HOME HEALTH AND REVIEWED WITH PATIENT.
--- NOTE | 2018-11-29 12:30 | NUR ---
PT DISCHARGED TO HOME VIA WHEELCHAIR MEDS CALLED INTO [facility] DISCHARGE SUMMARY AND MEDS REVIEWED
== END 2018-11-29 15:26 | disposition home health service (06) | DRG 91 ==
LOC: D.REHAB 15:58
PROVIDERS: ADMIT Emergency Medicine; ATTEND Emergency Medicine
DX: G72.89 Other specified myopathies (principal); J96.02 Acute respiratory failure with hypercapnia; J96.01 Acute respiratory failure with hypoxia; J18.1 Lobar pneumonia, unspecified organism; J90 Pleural effusion, not elsewhere classified; N17.9 Acute kidney failure, unspecified; E11.65 Type 2 diabetes mellitus with hyperglycemia; E66.01 Morbid (severe) obesity due to excess calories; R13.10 Dysphagia, unspecified; D72.829 Elevated white blood cell count, unspecified; I48.91 Unspecified atrial fibrillation; D64.9 Anemia, unspecified; E78.5 Hyperlipidemia, unspecified; E55.9 Vitamin D deficiency, unspecified; E87.6 Hypokalemia; I10 Essential (primary) hypertension; G47.33 Obstructive sleep apnea (adult) (pediatric); R13.12 Dysphagia, oropharyngeal phase; I12.9 Hypertensive chronic kidney disease with stage 1 through stage 4 chronic kidney disease, or unspecified chronic kidney disease; E11.22 Type 2 diabetes mellitus with diabetic chronic kidney disease; N18.9 Chronic kidney disease, unspecified

== ENCOUNTER → 2019-05-09 09:33 | Outpatient (CLI) | payer MEDICARE, BC ==
[2018-11-23 10:51] VITALS: BMI 44.5
== END | disposition home or self-care (01) ==
LOC: D.ECHO 09:33 → D.RT 11:00
PROVIDERS: ATTEND Internal Medicine Pulmonary Disease
DX: R06.00 Dyspnea, unspecified (principal); R91.8 Other nonspecific abnormal finding of lung field

== ENCOUNTER 2019-06-29 17:04 | Inpatient (IN) | payer MEDICARE, BC ==
[~2019-06-29] VITALS: Ht 168.9 cm; Wt 127.3 kg
[2019-06-29 21:19] LABS: ANION GAP 14.3 mmol/L (8-16); CALCIUM 8.6 mg/dL (8.5-10.1); CARBON DIOXIDE 27.9 mmol/L (21.0-32.0); CREATININE - SERUM 1.3 mg/dL (0.6-1.3); POTASSIUM - SERUM 4.2 mmol/L (3.5-5.1)
[2019-06-29 21:24] LABS: APPEARANCE CLEAR (CLEAR); BASOPHILS 0.2 % (0-2); BILIRUBIN NEGATIVE (NEGATIVE); COLOR YELLOW (YELLOW); EOSINOPHILS 1.4 % (0-7); GLUCOSE NEGATIVE (NEGATIVE); HEMATOCRIT 38.3 % (36.0-48.0); HEMOGLOBIN 12.1 g/dL (12-16); IMMATURE GRANULOCYTES 0.3 % (0-5); KETONE NEGATIVE (NEGATIVE); LYMPHOCYTES 22.8 % (15-50); MCH 26.4 pg (26.0-34.0); MCHC 31.6 g/dL (31.0-37.0); MCV 83.4 fL (80.0-100.0); MONOCYTES 9.1 % (2-11); NEUTROPHILS 66.2 % (40-80); NITRITE NEGATIVE (NEGATIVE); PLATELET COUNT 268 10x3/uL (130-400); PROTEIN TRACE mg/dL (NEGATIVE); RBC 4.59 10x6/uL (4.00-5.40); RDW 15.2 % (11.5-14.5); UROBILINOGEN NORMAL (NORMAL); WBC 6.4 10x3/uL (4.8-10.8)
[2019-06-29 21:25] LABS: ALBUMIN 3.5 g/dL (3.4-5.0); BACTERIA MODERATE /hpf (NEGATIVE); BILIRUBIN - TOTAL 0.77 mg/dL (0.2-1.3); EPITHELIAL CELLS 0-5 /hpf (0-5); PROTEIN - SERUM 7.5 g/dL (6.4-8.2); RED CELLS - URINE 0-5 /hpf (0-5)
[2019-06-29 21:29] LABS: APTT 26.1 SECONDS (22.8-39.4); INR 1.05 (0.85-1.17); PROTIME 13.2 SECONDS (11.6-15.0)
[2019-06-29 23:40] VITALS: BP 134/76
--- NOTE | 2019-06-30 00:08 | NUR ---
PT ARRIVED VIA BED WITH ER STAFF KRISHNA. PT IN BED WITH MINIMAL ASSISTANCE. IV TO LEFT HAND. NS RUNNING AT 65ML/HR. A/O X4. DENIES NEEDS AT THIS TIME. CL IN REACH. BED IN LOW POSITION. SIDE RAILS X2. WILL CONTINUE TO MONITOR.
[2019-06-30 00:33] VITALS: BP 134/76; BMI 44.6
[2019-06-30 05:22] VITALS: BP 137/58
--- NOTE | 2019-06-30 07:34 | NUR ---
RECEIVED PT SLEEPING IN BED. AROUSE TO ENTRY TO ROOM. BREAKFAST AT BEDSIDE, ASSIST FOR POSITION TO EAT. STATES FEELING BETTER. NO OTHER COMPLAINTS AT PRESENT.
[2019-06-30 07:36] VITALS: BP 152/50
[2019-06-30 08:13] VITALS: Ht 168.9 cm; Wt 127.3 kg
[2019-06-30 11:42] VITALS: BP 100/67
[2019-06-30 17:08] VITALS: BP 140/53
--- NOTE | 2019-06-30 17:21 | NUR ---
PT SITTING IN CHAIR EATING DINNER, BLOOD SUGAR CHECKED. FREQUENT TRIPS TO BATHROOM TO VOID BUT OFF IV FLUIDS NOW. CALL LIGHT CLOSE.
[2019-06-30 20:49] VITALS: BP 128/64
--- NOTE | 2019-06-30 21:00 | NUR ---
A/O WITH NO SIGNS OF ACUTE DISTRESS. IV TO THE RT HAND WITH NO REDNESS OR SWELLING NOTED. GAVE 4 UNITS OF HUMALOG SINCE PT HAS NEVER HAD MEDICATION AND STATED THAT SHE DIDN'T KNOW THE S/S OF HYOGLYCEMIA. DENIES NO NEEDS AT THIS TIME. WILL CONTINUE TO MONITOR AND PLAN OF CARE.
[2019-07-01 00:09] VITALS: BP 141/60
[2019-07-01 04:00] VITALS: BP 167/55
[2019-07-01 07:54] LABS: MCH 26.4 pg (26.0-34.0); MCHC 30.8 g/dL (31.0-37.0); MEAN PLATELET VOLUME 9.9 fL (7.4-10.4); PLATELET COUNT 252 10x3/uL (130-400); RBC 4.54 10x6/uL (4.00-5.40); RDW 15.3 % (11.5-14.5); WBC 5.4 10x3/uL (4.8-10.8)
[2019-07-01 08:03] LABS: MCV 85.9 fL (80.0-100.0)
[2019-07-01 08:04] LABS: BASOPHILS 0.2 % (0-2); EOSINOPHILS 4.1 % (0-7); IMMATURE GRANULOCYTES 0.4 % (0-5); LYMPHOCYTES 23.1 % (15-50); MONOCYTES 11.4 % (2-11); NEUTROPHILS 60.8 % (40-80)
[2019-07-01 08:09] LABS: ANION GAP 9.8 mmol/L (8-16); CALCIUM 8.7 mg/dL (8.5-10.1); CREATININE - SERUM 1.1 mg/dL (0.6-1.3); MAGNESIUM - SERUM 1.7 mg/dL (1.8-2.4); PHOSPHOROUS 4.5 mg/dL (2.5-4.9); POTASSIUM - SERUM 3.8 mmol/L (3.5-5.1)
[2019-07-01] MEDS ORDERED: MACRODANTIN100 MG PO (08:29)
[2019-07-01 08:50] VITALS: BP 147/66
--- NOTE | 2019-07-01 09:04 | NUR ---
PT RECEIVED SITTING UP IN CHAIR EATING BREAKFAST. NO COMPLAINTS BUT WORRIED ABOUT COLONOSCOPY SCHEDULED FOR TOMORROW. INFORMED HER OF NEED FOR URINE SPECIMAN.
--- NOTE | 2019-07-01 12:54 | NUR ---
IV REMOVED AND DISCHARGE INSTRUCTIONS REVIEWED WITH PT. FAMILY HERE TO DRIVE HOME. SCRIPT E-SCRIBED TO [facility].
--- NOTE | 2019-07-01 20:19 | MORECARE ---
CASE MANAGEMENT DISCHARGE SUMMARY PATIENT: SUNDAR MCDONALD UNIT: [id number] ADM DATE: 06/29/19 AGE: 79 : 40 SEX: F ROOM/BED: D.1213 AUTHOR: KEVIN TREJO PHYSICIAN: REFERRING PHYSICIAN: ERA LICONA MD DATE OF SERVICE: 07/01/19 Discharge Plan Patient Name: SUNDAR MCDONALD Facility: [facility]:[place] : 1940 Planned Disposition: Home or Self Care Anticipated Discharge Date: Discharge Date: 07/01/2019 Expected LOS: Initial Reviewer: [email or web address] Initial Review Date: 07/01/2019 Generated: 07/01/19 9:18 pm DCPIA - Discharge Planning Initial Assessment Updated by [email or web address]: Sally Sandoval on 07/01/19 8:17 pm * Is the patient Alert and Oriented? Yes * How many steps to enter\exit or inside your home? * PCP NICHOL * Pharmacy [facility] * Preadmission Environment Home Alone * ADLs Independent * Other Equipment WALKER, CANE, CPAP, HOME/PORTABLE 02 * List name and contact numbers for known caregivers / representatives who currently or will assist patient after discharge: DEMETRIA [facility] - [phone] * Verbal permission to speak to the caregivers and representatives has been obtained from the patient. Yes * Community resources currently utilized None * Additional services required to return to the preadmission environment? No * Can the patient safely return to the preadmission environment? Yes * Has this patient been hospitalized within the prior 30 days at any hospital? No Patient Name: SUNDAR MCDONALD Page [id number] at 2019 All edits/amendments must be made on the electronic document DICTATION DATE: 07/01/192017 TOOL ROOM SUPERVISOR: CRISTOPHER 07/01/19 2018 RPT#: [id number] DC DATE:07/01/19 STATUS: DIS IN [facility] [address] [place] [address] END OF REPORT
--- NOTE | 2019-07-01 20:25 | MORECARE ---
CASE MANAGEMENT DISCHARGE SUMMARY PATIENT: SUNDAR MCDNOALD UNIT: [id number] ADM DATE: 06/29/19 AGE: 79 : 40 SEX: F ROOM/BED: D.1213 AUTHOR: NEIL,DOC PHYSICIAN: REFERRING PHYSICIAN: ERA LICONA MD DATE OF SERVICE: 07/01/19 Discharge Plan Patient Name: SUNDAR MCDONALD Facility: [facility]:[place] : 1940 Planned Disposition: Home or Self Care Anticipated Discharge Date: Discharge Date: 07/01/2019 Expected LOS: Initial Reviewer: [email or web address] Initial Review Date: 07/01/2019 Generated: 07/01/19 9:25 pm Comments DCP- Discharge Planning Updated by [email or web address]: Sally Sandoval on 07/01/19 7:[address] Patient Name: SUNDAR MCDONALD Admission Status: ER Accout number: [id number] Admission Date: 06-29-2019 : 1940 Admission Diagnosis: Attending: ERA LICONA Current LOS: 2 Anticipated DC Date: Planned Disposition: Home or Self Care Primary Insurance: MEDICARE A & B Discharge Planning Comments: CM met with patient to complete initial dc planning assessment. CM educated patient on the CM role and verbal consent given by patient to complete assessment. Patient lives at home alone where she is independent with her care. At discharge patient plans to return home and feels this is a safe discharge. CM discussed availability of home health, rehab services, and medical equipment. Her son will drive her home upon discharge. Patient has walker, cane, CPAP, home / portable o2 ( [employer] ) Patient denied known discharge needs at this time. CM will continue to follow and will assist as needed with dc plans/needs. Tmd Teacher Assistant: Sally Sandoval DCPIA - Discharge Planning Initial Assessment Updated by [email or web address]: Sally Sandoval on 07/01/19 8:17 pm * Is the patient Alert and Oriented? Yes * How many steps to enter\exit or inside your home? * PCP NICHOL * Pharmacy [facility] * Preadmission Environment Home Alone * ADLs Independent * Other Equipment WALKER, CANE, CPAP, HOME/PORTABLE 02 * List name and contact numbers for known caregivers / representatives who currently or will assist patient after discharge: DEMETRIA CAZARES - [phone] * Verbal permission to speak to the caregivers and representatives has been obtained from the patient. Yes * Community resources currently utilized None * Additional services required to return to the preadmission environment? No * Can the patient safely return to the preadmission environment? Yes * Has this patient been hospitalized within the prior 30 days at any hospital? No Last DP export: 07/01/19 7:19 Patient Name: SUNDAR MCDONALD Page [id number] at 2024 All edits/amendments must be made on the electronic document DICTATION DATE: 07/01/192024 HOT WALKER: CRISTOPHER 07/01/192024 RPT#: [id number] DC DATE:07/01/19 [facility] [address] [place] [address] END OF REPORT
== END 2019-07-01 12:55 | disposition home or self-care (01) | DRG 690 ==
LOC: D.ER 17:04 → D.M3 23:17
PROVIDERS: Emergency Medicine; ADMIT Internal Medicine Nephrology; ATTEND Internal Medicine Nephrology
DX: N39.0 Urinary tract infection, site not specified (principal); N17.9 Acute kidney failure, unspecified; R51 Headache; I10 Essential (primary) hypertension; E78.5 Hyperlipidemia, unspecified; E11.9 Type 2 diabetes mellitus without complications; I48.91 Unspecified atrial fibrillation; G47.33 Obstructive sleep apnea (adult) (pediatric); R91.1 Solitary pulmonary nodule; Z86.73 Personal history of transient ischemic attack (TIA), and cerebral infarction without residual deficits

== ENCOUNTER → 2019-10-24 10:00 | Outpatient (CLI) | payer MEDICARE, BC ==
[2019-06-30 08:13] VITALS: BMI 44.6
[~2019-10-24 10:00] MED LIST changes: +MACRODANTIN100 MG PO
== END | disposition home or self-care (01) ==
LOC: D.MAMMO 10:00
PROVIDERS: ATTEND Clinical Nurse Specialist Adult Health
DX: Z12.31 Encounter for screening mammogram for malignant neoplasm of breast (principal)

== ENCOUNTER 2020-05-10 14:31 | Emergency (ER) | payer MEDICARE, BC ==
[~2020-05-10] VITALS: Ht 168.9 cm; Wt 136.4 kg
[2020-05-10 14:47] VITALS: Ht 168.9 cm; Wt 136.4 kg
[2020-05-10] MEDS ORDERED: MAG-OX 400 MG400 MG (14:56)
[2020-05-10] MEDS ORDERED: FERROUS SULFAT325 MG (14:56)
[2020-05-10] MEDS ORDERED: K-DUR20 MEQ (14:56)
[2020-05-10] MEDS ORDERED: LASIX40 MG (14:57)
[2020-05-10] MEDS ORDERED: VOLTAREN75 MG (14:57)
[2020-05-10] MEDS ORDERED: QUESTRAN LIG1 PACKET (14:57)
[2020-05-10] MEDS ORDERED: OXYBUTYNIN CHLOR5 MG (14:57)
[2020-05-10] MEDS ORDERED: COZAAR50 MG (14:58)
[2020-05-10] MEDS ORDERED: ALENDRONAT70 MG/75 M (14:58)
[2020-05-10] MEDS ORDERED: ASPIRIN325 MG (14:58)
[2020-05-10 15:30] LABS: BASOPHILS 0.2 % (0-2); EOSINOPHILS 2.4 % (0-7); HEMATOCRIT 43.1 % (36.0-48.0); HEMOGLOBIN 13.6 g/dL (12-16); IMMATURE GRANULOCYTES 0.8 % (0-5); LYMPHOCYTES 16.6 % (15-50); MCH 27.7 pg (26.0-34.0); MCHC 31.6 g/dL (31.0-37.0); MCV 87.8 fL (80.0-100.0); PLATELET COUNT 237 10x3/uL (130-400); RBC 4.91 10x6/uL (4.00-5.40); WBC 9.6 10x3/uL (4.8-10.8)
[2020-05-10 15:30] LABS: BILIRUBIN NEGATIVE (NEGATIVE); KETONE NEGATIVE (NEGATIVE); NITRITE NEGATIVE (NEGATIVE); UROBILINOGEN NORMAL mg/dL (< 2)
[2020-05-10 15:31] LABS: WHITE CELLS - URINE 0-5 HPF (0-4)
[2020-05-10 15:32] LABS: BACTERIA FEW HPF (NONE SEEN)
[2020-05-10 15:59] LABS: ANION GAP 11.2 mmol/L (8-16); CALCIUM 9.3 mg/dL (8.5-10.1); CARBON DIOXIDE 27.3 mmol/L (21.0-32.0); CREATININE - SERUM 1.4 mg/dL (0.6-1.3); POTASSIUM - SERUM 4.5 mmol/L (3.5-5.1)
[2020-05-10 16:06] LABS: ALBUMIN 3.7 g/dL (3.4-5.0); BILIRUBIN - TOTAL 1.37 mg/dL (0.2-1.3); PROTEIN - SERUM 7.9 g/dL (6.4-8.2)
[2020-05-10 16:25] LABS: APTT 27.8 SECONDS (22.8-39.4); INR 0.94 (0.85-1.17); PROTIME 12.6 SECONDS (11.6-15.0)
[2020-05-10 19:57] VITALS: BP 196/83
== END 2020-05-10 19:57 | disposition home or self-care (01) ==
LOC: D.ER 14:31
PROVIDERS: Family Medicine
DX: G45.9 Transient cerebral ischemic attack, unspecified (principal); Z86.73 Personal history of transient ischemic attack (TIA), and cerebral infarction without residual deficits; R60.9 Edema, unspecified; I10 Essential (primary) hypertension; E11.9 Type 2 diabetes mellitus without complications; I48.91 Unspecified atrial fibrillation

== ENCOUNTER 2020-10-25 11:15 | Outpatient (CLI) | payer MEDICARE, BC ==
[2020-05-10 14:47] VITALS: BMI 47.8
[~2020-10-25 11:15] MED LIST changes: +ALENDRONAT70 MG/75 M; +ASPIRIN325 MG; +COZAAR50 MG; +FERROUS SULFAT325 MG; +K-DUR20 MEQ; +LASIX40 MG; +MAG-OX 400 MG400 MG; +OXYBUTYNIN CHLOR5 MG; +QUESTRAN LIG1 PACKET; +VOLTAREN75 MG
== END 2020-10-25 23:59 | disposition home or self-care (01) ==
LOC: D.MAMMO 11:15
PROVIDERS: ATTEND Nurse Practitioner
DX: Z12.31 Encounter for screening mammogram for malignant neoplasm of breast (principal)